=== PATIENT | female | born 1955 | race Caucasian/White ===

== ENCOUNTER 2025-09-28 14:01 | Outpatient (AMB) | payer MEDICARE, SELFPAY ==
[2025-09-28 14:03] VITALS: BP 144/62; PULSE 63; O2SAT 99; BMI 15.9
--- NOTE | 2025-09-28 14:03 | HO.NEPHOV ---
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: No Accompanied by: Son Allergies adalimumab Allergy (Unknown, Verified 09/28/25 14:06) Rash alendronate sodium Allergy (Unknown, Verified 09/28/25 14:06) Unknown azathioprine Allergy (Unknown, Verified 09/28/25 14:06) Unknown cefuroxime Allergy (Unknown, Verified 09/28/25 14:06) Nausea and Vomiting clindamycin Allergy (Unknown, Verified 09/28/25 14:06) Gastrointestinal Upset etanercept Allergy (Unknown, Verified 09/28/25 14:06) Unknown golimumab Allergy (Unknown, Verified 09/28/25 14:06) Unknown ibandronate sodium Allergy (Unknown, Verified 09/28/25 14:06) Unknown levofloxacin Allergy (Unknown, Verified 09/28/25 14:06) GI Intolerance lisinopril Allergy (Unknown, Verified 09/28/25 14:06) Cough methotrexate Allergy (Unknown, Verified 09/28/25 14:06) Unknown risedronate sodium Allergy (Unknown, Verified 09/28/25 14:06) Unknown sulfamethoxazole (From Sulfamethoxazole-Trimethoprim) Allergy (Unknown, Verified 09/28/25 14:06) Hives trimethoprim (From Sulfamethoxazole-Trimethoprim) Allergy (Unknown, Verified 09/28/25 14:06) Hives covid 19 vaccine Bivalent, Moderna Allergy (Unknown, Uncoded 09/26/25 15:19) Hives Medication List - Last Reconciled 09/28/25 by Bradley Rosenberg MD balsalazide 750 mg PO TID cyclosporine 0.05% (Restasis) 1 drp ophthalmic (eye) BID doxycycline monohydrate 100 mg PO BID famotidine 40 mg PO DAILY ferrous sulfate 134 mg PO DAILY gabapentin 600 mg PO TID labetalol 100 mg PO Q12H metformin ER 1,000 mg PO BID mycophenolate mofetil 1,500 mg PO BID nifedipine ER 30 mg PO QAM prednisone 4 mg PO DAILY timolol maleate 0.5% 1 drp ophthalmic (eye) BID valacyclovir 1,000 mg PO DAILY valsartan 80 mg PO DAILY HPI Comments Details: The patient is a 70-year-old female presenting with hypertension management and associated complications. The patient has a long-standing history of essential hypertension, first noted during her teenage years. Despite treatment with labetalol, nifedipine, and valsartan, her blood pressure remains poorly controlled, often reaching 180 mmHg in the mornings before medication. She experiences significant peripheral edema, particularly in the feet and legs, which worsens with nifedipine use. The patient also has a history of diabetes mellitus, managed with metformin, and reports an A1c of 6.5%. Additionally, she has been diagnosed with Siddharth's Granulomatosis, confirmed through blood work and biopsy, and is currently managed with mycophenolate. Neuropathy, affecting her legs and feet, is managed with gabapentin, although she reports significant pain at night. She has also experienced a brain hemorrhage, with a recent CT confirming stability and no further complications. Patient Instructions - Monitor blood pressure regularly and report any significant changes. - Continue taking prescribed medications as directed. - Schedule follow-up appointments with neurology and pain management specialists. - Report any new or worsening symptoms to your healthcare provider. 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 Thin built Neck supple no JVD. Lungs entry equal no rales. Heart S1-S2 heard no gallop or rub. Abdomen soft nontender. Neuro alert awake oriented. No asterixis. Extremities 1 + ankle edema. Results Reviewed Results Reviewed: Labs reviewed Assessment & Plan Assessment & Plan (1) HTN (hypertension): Code(s): I10 - Essential (primary) hypertension Category: Medical Plan 1. Essential Hypertension - Plan to conduct 24-hour blood pressure monitoring to assess fluctuations and adjust medications accordingly. - Consider increasing valsartan dosage - Evaluate the need to discontinue nifedipine due to associated edema. 2. Peripheral Edema - Assess for proteinuria to rule out renal causes of edema. - Consider discontinuing nifedipine if it is contributing to edema. 3. Diabetes Mellitus - Continue management with metformin and monitor A1c levels. 4. Siddharth's Granulomatosis - Continue current management with mycophenolate. Check urine for protein and blood 5. Neuropathy - Continue gabapentin for neuropathic pain management. - Consider referral to hand paint mixer for further evaluation. 6. Brain Hemorrhage - Follow-up with neurology and repeat MRI to monitor for any changes. Orders: Orders Total Protein Urine Random 09/28/25 I10 - Essential (primary) hypertension UA and rflx microscopic 09/28/25 I10 - Essential (primary) hypertension Comprehensive Met. Panel 09/28/25 I10 - Essential (primary) hypertension Myeloperoxidase Antibody 09/28/25 I10 - Essential (primary) hypertension Creatinine Urine 09/28/25 I10 - Essential (primary) hypertension Complete Blood Count Auto Diff 09/28/25 I10 - Essential (primary) hypertension Neutrophil Cytoplasma Ab 09/28/25 I10 - Essential (primary) hypertension Proteinase 3 PR3 Antibodies 09/28/25 I10 - Essential (primary) hypertension AMB 24 HR B/P Monitor PLACEMENT 09/28/25 I10 - Essential (primary) hypertension Coding Level of Care Code New Pt Level 4 (69498) Diagnoses HTN (hypertension) I10
--- OUTSIDE RECORDS SUMMARY | 2025-09-28 17:59 | XMS_ITS | Encounter Summary ---
Author Organization [facility] Address [address] [place] [address] Care Team Providers Care Cdc Associate Name Role Phone Elvia Astudillo Primary Care Provider + Encounter Details Date Type Department Care Team (Late Contact Info) Description 09/04/2025 Results Follow-Up Internal Medicine [facility] 175 [facility] [address] [place] [address] Elvia Astudillo PA [address] [place] [address] Social History Tobacco Use Types Packs/Day Years Used Date Smoking Tobacco: Former Cigarettes 1 36 0 01/08/1971 - 01/08/2007 Smokeless Tobacco: Never Alcohol Use Standard Drinks/Week Comments No 0 (1 standard drink = 0.6 oz pur e alcohol) Comments Unknown Sex and Gender Information Value Date Recorded Sex Assigned at Not on file Legal Sex Female 11:01 AM EST Gender Identity Not on file Sexual Orientation Not on file Occupation Industry Job Start Date Job End Date Disabled Not on file Not on file Not on file documented as of this encounter Plan of Treatment Upcoming Encounters Date Type Department Care Team (Late Contact Info) Description 10/19/2025 9:45 AM EST Office Visit Internal Medicine [facility] 175 [facility] [address] [place] [phone] Elvia Astudillo PA [address] [place] [address] 12/09/2025 9:40 AM EST Office Visit Gastroenterology - [address] [facility] 299 [facility] [address] [place] [phone] Aleisha Hutchins MD [address] [place] [phone] 03/10/2026 9:30 AM EDT Office Visit Internal Medicine - [place] [address] [phone] Elvia Astudillo PA [address] [place] [address] documented as of this encounter Visit Diagnoses Not on filedocumented in this encounter Care Teams Cdc Associate Relationship Specialty Start Date End Date Elvia Astudillo PA [address] [address] PCP - General Internal Medicine 06/26/20 documented as of this encounter
--- OUTSIDE RECORDS SUMMARY | 2025-09-28 17:59 | XMS_ITS | Encounter Summary ---
Author Organization [facility] Address [address] [place] [address] Care Team Providers Care Oyster Bed Worker Name Role Phone Elvia Astudillo Primary Care Provider + Reason for Visit * Reason Onset Date Comments Request For Order(s) 09/27/2025 [facility] Order # [id number] Encounter Details Date Type Department Care Team (Late st Contact Info) Description 09/27/2025 Telephone Internal Medicine - [place] 175 [facility] [address] [place] [address] Carine Gomez MA Social History Tobacco Use Types Packs/Day Years [...] on file documented as of this encounter Progress Notes * Carine Gomez MA - 09/28/2025 10:58 AM EDT Scanned into chart and faxed to [facility] [phone] * Carine Gomez MA - 09/27/2025 9:09 AM EDT [facility] Order # [id number] Please sign & documented in this encounter Plan of Treatment Upcoming Encounters Date Type Department Care Team (Late st Contact Info) Description 10/19/2025 9:45 AM EST Office Visit Internal Medicine - [place] 175 [facility] 200 [place] [phone] Elvia Astudillo PA [address] [place] [address] 12/09/2025 9:40 AM EST Office Visit Gastroenterology - 299 [facility] 299 [facility] [address] [place] [phone] Aleisha Hutchins MD [address] [place] [address] 03/10/2026 9:30 AM EDT Office Visit Internal Medicine [facility] 175 [facility] 200 [place] [phone] Elvia Astudillo PA [address] [place] [address] documented as of this encounter Visit Diagnoses Not on filedocumented in this encounter Care Teams Oyster Bed Worker Relationship Specialty Start Date End Date Elvia Astudillo PA 175 [facility] 200 [place] [address] PCP - General Internal Medicine 06/26/20 documented as of this encounter
--- OUTSIDE RECORDS SUMMARY | 2025-09-28 17:59 | XMS_ITS | Encounter Summary ---
Author Organization [facility] Address [address] [place] [address] Care Team Providers Care Electrical Linesworker Name Role Phone Elvia Astudillo Primary Care Provider + Encounter Details Date Type Department Care Team ([facility] Contact Info) Description 09/27/2025 Telephone Internal Medicine - [place] 175 [facility] 200 [place] [phone] Carine Gomez MA Social History Tobacco Use [...] 9:45 AM EST Office Visit Internal Medicine [facility] 175 [facility] [address] [place] [phone] Elvia Astudillo PA [address] [place] [phone] 12/09/2025 9:40 AM EST Office Visit Gastroenterology - 299 [facility] 299 [facility] [address] [place] [phone] Aleisha Hutchins MD [address] [place] [phone] 03/10/2026 9:30 AM EDT Office Visit Internal Medicine - [place] [address] [phone] Elvia Astudillo PA [address] [place] [phone] documented as of this encounter Visit Diagnoses Not on filedocumented in this encounter Care Teams Electrical Linesworker Relationship Specialty Start Date End Date Elvia Astudillo PA [address] [address] PCP - General Internal Medicine 06/26/20 documented as of this encounter
--- OUTSIDE RECORDS SUMMARY | 2025-09-28 17:59 | XMS_ITS | Clinical Summary ---
Author Organization [facility] Address [address] [place] [address] Phone Care Team Providers Care Case Management Assistant Name Role Phone Elvia Astudillo Primary Care Provider + Allergies Active Allergy Reactions Criticality Noted Date Comments Adalimumab Rash 03/18/2025 Alendronate Other 03/18/2025 Azathioprine GI intolerance 03/18/2025 Cefdinir Diarrhea 03/18/2025 Cefuroxime GI intolerance,Nause a And Vomiting,Nausea Only 07/03/2018 cefuroxime axetil Clindamycin GI intolerance 03/18/2025 Covid-19 Vaccine, Bivalent, Mrna (Moderna) Hives 12/06/2021 Phizer - hives after 2nd shot Etanercept Other 03/18/2025 Enbrel Golimumab GI intolerance 03/18/2025 Ibandronate Other 03/18/2025 Levofloxacin GI intolerance 03/18/2025 Lisinopril Cough 05/24/2019 Methotrexate Other 03/18/2025 Risedronate GI intolerance 03/18/2025 Sulfamethoxazole-Trimet hoprim Hives,Rash 07/03/2018 Bactrim Medications doxycycline (ADOXA) 100 mg tablet Take 1 tablet (100 mg total) by mouth 2 (two) times a day. 12/29/19 14 Active mycophenolate (CELLCEPT) 500 mg tablet Take 3 tablets (1,500 mg total) by mouth 2 (two) times a day. Active valACYclovir (VALTREX) 1 gram tablet Take 1 tablet (1,000 mg total) by mouth 1 (one) time each day. 12/10/19 23 Active timolol (TIMOPTIC) 0.5 % ophthalmic solution 1 drop. Active polyethylene glycol (PEG) 17 gram/dose oral powder Take 17 g by mouth. 12/29/19 14 Active cycloSPORINE (RESTASIS) 0.05 % ophthalmic emulsion 1 drop 2 (two) times a day. Active balsalazide (COLAZAL) 750 mg capsule Take 1 capsule (750 mg total) by mouth 3 (three) times a day. 270 capsule 1 07/21/20 25 Active famotidine (PEPCID) 40 mg tablet Take 1 tablet (40 mg total) by mouth 1 (one) time each day. 180 tablet 3 07/21/20 25 Active metFORMIN XR (GLUCOPHAGE-XR) 500 mg 24 hr tabletIndication s:Type 2 diabetes mellitus with diabetic microalbuminuria , without long-term current use of insulin ([facility] V24, [facility] V28) Take 2 tablets (1,000 mg total) by mouth 2 (two) times a day with meals. Do not crush, chew, or split. 360 tablet 1 09/02/20 25 Active NIFEdipine XL (PROCARDIA XL) 30 mg 24 hr tabletIndication s:Primary hypertension Take 1 tablet (30 mg total) by mouth 1 (one) time each day before breakfast. 90 tablet 3 09/02/20 25 Active labetaloL (NORMODYNE) 100 mg tablet Take 1 tablet (100 mg total) by mouth 2 (two) times a day. 180 each 1 09/15/20 25 03/14/ 026 Active melatonin 3 mg capsule Take 3 mg by mouth at bedtime. 90 capsule 3 09/15/20 25 Active valsartan (DIOVAN) 80 mg tablet Take 1 tablet (80 mg total) by mouth 1 (one) time each day. 90 each 1 09/15/20 25 Active acetaminophen-co deine (TYLENOL #3) 300-30 mg per tabletIndication s:Rheumatoid arthritis, involving unspecified site, unspecified whether rheumatoid factor present ([facility] V24, [facility] V28) Take 1 tablet by mouth at bedtime as needed for severe pain. Max Daily Amount: 1 tablet 7 tablet 09/22/20 25 Active gabapentin (NEURONTIN) 600 mg tablet Take 1 tablet (600 mg total) by mouth 4 (four) times a day. 360 tablet 1 09/27/20 Active predniSONE (DELTASONE) 1 mg tablet Take 4 tablets (4 mg total) by mouth. 12/10/19 025 Discontinued metFORMIN XR (GLUCOPHAGE-XR) 500 mg 24 hr tabletIndication s:Type 2 diabetes mellitus with diabetic microalbuminuria , without long-term current use of insulin (CMS/HCC V24, CMS/HCC V28) Take 2 tablets (1,000 mg total) by mouth 2 (two) times a day with meals. Do not crush, chew, or split. 360 tablet 1 01/28/20 025 Discontinued(Re order) NIFEdipine XL (Procardia XL) 30 mg 24 hr tabletIndication s:Primary hypertension Take 1 tablet (30 mg total) by mouth 2 (two) times a day. Do not crush, chew, or split. 180 each 1 02/05/20 025 Discontinued(Re order) ketoconazole (NIZORAL) 2 % shampooIndicatio ns:Dandruff SHAMPOO DAILY LEAVE ON FOR 5-10 MINUTES, THEN RINSE 120 mL 02/11/20 025 Discontinued MINOXIDIL ORAL Take by mouth. 025 Discontinued(Th erapy completed) gabapentin (NEURONTIN) 600 mg tablet TAKE 1 TABLET 3 TIMES A DAY 270 tablet 1 05/01/20 025 Discontinued(Re order) linaCLOtide (LINZESS) 145 mcg capsule Take 1 capsule (145 mcg total) by mouth 1 (one) time each day before breakfast. 90 capsule 1 07/21/20 025 Discontinued NIFEdipine XL (Procardia XL) 30 mg 24 hr tabletIndication s:Primary hypertension Take 1 tablet (30 mg total) by mouth 1 (one) time each day before breakfast. Do not crush, chew, or split. 09/02/20 25 025 Discontinued(Re order) NIFEdipine XL (Procardia XL) 30 mg 24 hr tabletIndication s:Primary hypertension Take 1 tablet (30 mg total) by mouth 1 (one) time each day before breakfast. Do not crush, chew, or split. 90 tablet 3 09/02/20 25 025 Discontinued gabapentin (NEURONTIN) 600 mg tablet Take 1 tablet (600 mg total) by mouth 3 (three) times a day. 270 tablet 1 09/02/20 025 Discontinued(Re order) labetaloL (NORMODYNE) 100 mg tablet Take 1 tablet (100 mg total) by mouth 2 (two) times a day. 09/12/20 025 Discontinued(Re order) valsartan (DIOVAN) 40 mg tablet Take 1 tablet (40 mg total) by mouth 1 (one) time each day. 09/12/20 025 Discontinued valsartan (DIOVAN) 80 mg tablet Take 1 tablet (80 mg total) by mouth 1 (one) time each day. 30 each 1 09/14/20 025 Discontinued(Re order) labetaloL (NORMODYNE) 100 mg tablet Take 1 tablet (100 mg total) by mouth 2 (two) times a day. 60 each 1 09/14/20 025 Discontinued(Du plicate order) melatonin 3 mg capsule Take 3 mg by mouth at bedtime. 90 capsule 3 09/14/20 025 Discontinued(Re order) Active Problems Problem Noted Date Diagnosed Date Anxiety Overview (10/15/2024): DX:Anxiety Chronic sinusitis Overview (10/15/2024): DX:Chronic sinusitis Crohn's disease ([facility] V24, [facility] V28) Overview (10/15/2024): DX:Crohn's disease ([facility]) DM type 2 (diabetes mellitus , type 2) ([facility] V24, 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 V24, 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 V24, [facility] V28) Overview (10/15/2024): DX:Wegeners granulomatosis Encounters Date Type Department Care Team Description 09/27/2025 Telephone Internal Medicine [facility] [address] [address] Carine Gomez MA 09/27/2025 Telephone Internal Medicine [facility] [address] [address] Carine Gomez MA 09/27/2025 Telephone Internal Medicine [facility] [address] [address] Carine Gomez MA 09/27/2025 Telephone Internal Medicine [facility] [address] [address] Carine Gomez MA 09/27/2025 Telephone Internal Medicine [facility] [address] [address] Carine Gomez MA 09/27/2025 Telephone Internal Medicine [address] [address] Carine Gomez MA 09/22/2025 10:30 AM EDT Office Visit Internal [address] [address] Elvia Astudillo PA Primary hypertension (Primary Dx); Rheumatoid arthritis, involving unspecified site, unspecified whether rheumatoid factor present (CMS/HCC V24, CMS/HCC V28) 09/19/2025 Telephone Internal Medicine [address] [address] Elvia Astudillo PA 09/16/2025 Telephone Internal Medicine [address] [address] Elvia Astudillo PA 09/14/2025 10:30 AM EDT Office Visit Internal [address] [address] Ben Wheatley MD Hospital discharge follow-up (Primary Dx); Cerebral brain hemorrhage (CMS/HCC V24, CMS/[facility] V28); Primary hypertension 09/14/2025 Telephone Internal [address] [address] Elvia Astudillo PA 09/13/2025 Telephone Internal Medicine [address] [address] Elvia Astudillo PA 09/04/2025 Results Follow-Up Internal [address] [address] Elvia Astudillo PA 09/02/2025 9:30 AM EDT Office Visit [address] [address] Elvia Astudillo PA Type 2 diabetes mellitus with diabetic microalbuminuria, without long-term current use of insulin ([facility] V24, [facility] V28) (Primary Dx); Primary hypertension; Pure hypercholesterolemia ; Rheumatoid arthritis, involving unspecified site, unspecified whether rheumatoid factor present ([facility] V24, [facility] V28) 09/02/2025 Telephone Internal Medicine - [place] 175 [facility] [address] [place] [address] Elvia Astudillo PA 07/20/2025 Telephone Gastroenterology - [address] [facility] [address] [place] [address] Aleisha Hutchins MD from Last 3 Months Immunizations Immunization Administration Dates Next Due Pneumococcal conjugate 13 va lent (Prevnar 13, PCV13) 2mo and older 07/20/2020 Pneumococcal polysaccharide 23 valent (Pneumovax 23) 2yo and older 06/28/2021,07/25/2008 Tdap Tetanus diptheria acell ular pertussis (Boostrix; Adacel) 7yo and older 12/09/2023,04/14/2014 Surgical History Surgery Date Site/Laterality Comments EYE SURGERY Left PROCEDURE: HISTORICAL EYE SURGERY; COMMENT: x 2 - eye patch and cataract - 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 Mendenhall COLONOSCOPY W/ BIOPSIES 04/05/2003 Dr. Sinha - no active colitis COLONOSCOPY W/ BIOPSIES 07/05/2008 no active colitis Medical History Medical History Date Comments Anxiety 07/15/2017 DX:Anxiety Chronic sinusitis 03/06/2018 DX:Chronic sin usitis Hyperlipidemia 07/03/2018 DX:Hyperlipidemi a; COMMENT: declines medication Insomnia 07/15/2017 DX:Insomnia Rheumatoid arthritis ([facility]/ C V24, [facility] V28) 07/03/2018 DX:Rheumatoid arthritis ([facility] ) Wegeners granulomatosis 07/03/2018 DX:Wegen ers granulomatosis Crohn's disease ([facility] V24 , [facility] V28) 07/03/2018 DX:Crohn's disease ([facility]) GERD (gastroesophageal reflux disease) 11/07/2017 DX:GERD (gastroesophageal reflux disease) Raynaud's disease DX:Raynaud's d isease 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 DM type 2 (diabetes mellitus , type 2) ([facility] V24, [facility] V28) 07/03/2018 DX:DM type 2 (diabetes papa itus, type 2) ([facility]) HTN (hypertension) DX:HTN (hyper tension) Microalbuminuria DX:Microalbumin uria Chronic constipation Androgenetic alopecia Family History Medical History Relation Name Comments Dementia Father Heart attack Father Stroke Mother Other: non hodgkins lymphoma Son Relation Name Status Comments Father (Age 80) Mother (Age 80) Son Alive Social History Tobacco Use Types Packs/Day Years Used Date Smoking Tobacco: Former Cigarettes 1 36 0 01/08/1971 - 01/08/2007 Smokeless Tobacco: Never Tobacco Cessation:Counseling Given: Not Answered Alcohol Use Standard Drinks/Week Comments No 0 [...] file Not on file Not on file Obstetrics History Last Filed Vital Signs Vital Sign Reading Time Taken Comments Blood Pressure 142/82 09/22/2025 10:54 AM EDT Pulse 54 09/22/2025 10:28 AM EDT Temperature 36.4 C (97.5 F) 09/22/2025 10:28 AM EDT Respiratory Rate - - Oxygen Saturation 98% 09/22/2025 10:28 AM EDT Inhaled Oxygen Concentration - - Weight 39.6 kg (87 lb 6.4 oz) 09/22/2025 10:28 A M EDT Height 158.1 cm (5' 2.25 ) 09/22/2025 10:28 AM E DT Body Mass Index 15.86 09/22/2025 10:28 AM EDT Plan of Treatment Upcoming Encounters Date Type Department Care Team (Late st Contact Info) Description 10/19/2025 9:45 AM EST Office Visit Internal Medicine - [place] 175 [facility] [address] [place] [phone] Elvia Astudillo PA [address] [place] [address] 12/09/2025 9:40 AM EST Office Visit Gastroenterology - [address] [facility] [address] [place] [address] Aleisha Hutchins MD [address] [place] [address] 03/10/2026 9:30 AM EDT Office Visit Internal Medicine - [place] 175 [facility] [address] [place] [phone] Elvia Astudillo PA [address] [place] [address] Health Maintenance Due Date Last Done Comments Breast Cancer Screening 1955 Diabetes: Annual Foot Exam 02/08/1966 Diabetes: Annual Retina Eye Exam 02/08/1966 Zoster Vaccines (1 of 2) 02/08/1975 RSV Immunization Adult Patients (1 - Risk 50-74 years 1-dose series) 02/08/2006 Colorectal Cancer Screening: Colonoscopy 04/05/2013 04/05/2003 COVID-19 Vaccine (3 - Pfizer risk series) 04/02/2021 03/05/2021, 02/12/2021 Falls Risk Assessment 11/09/2022 Hepatitis C Screening 11/09/2022 Medicare Annual Wellness Visit 11/09/2022 Osteoporosis Screening (Bone Density Screening) 11/09/2022 Social Influencers of Health Screening 11/09/2022 Depression Screening 12/01/2024 Diabetes: Annual Urine Albumin-Creatinine Ratio (uACR) 06/08/2025 06/08/2024 Cholesterol Screening (Lipid Panel) 07/20/2025 07/20/2020 Influenza Vaccine (#1) 2025 Diabetes: Blood Sugar Contro l Test (HGBA1C) 03/03/2026 09/02/2025, 12/10/2024, 06/08/2024 Diabetes: Annual GFR (Glomerular Filtration Rate) 09/02/2026 09/02/2025, 12/10/2024, 06/08/2024 Hypertension/CHF/CAD Annual BMP Blood Test 09/02/2026 09/02/2025, 12/10/2024, 06/08/2024 DTaP,Tdap,and Td Vaccines (3 - Td or Tdap) 12/09/2033 12/09/2023, 04/14/2014 Pneumococcal Vaccine: 50+ Years Completed 06/28/2021, 07/20/2020, 07/25/2008 HIB Vaccines Aged Out No longer eligi ble based on patient's age to complete this topic HPV Vaccines Aged Out No longer eligi ble based on patient's age to complete this topic Hepatitis A Vaccines Aged Out No long er eligible based on patient's age to complete this topic Hepatitis B Vaccines Aged Out No long er eligible based on patient's age to complete this topic IPV Vaccines Aged Out No longer eligi ble based on patient's age to complete this topic MMR Vaccines Aged Out No longer eligi ble based on patient's age to complete this topic Meningococcal ACWY Vaccine Aged Out N o longer eligible based on patient's age to complete this topic Meningococcal B Vaccine Aged Out No l onger eligible based on patient's age to complete this topic RSV Immunization Patients Under 20 months Aged Out No longer eligible b ased on patient's age to complete this topic Varicella Vaccines Aged Out No longer eligible based on patient's age to complete this topic Procedures Procedure Name Priority Date/Time Associated Diagnosis Comments COMPREHENSIVE METABOLIC PANEL Routine 09/02/2025 10:07 AM EDT Type 2 diabetes mellitus with diabetic microalbuminuria, without long-term current use of insulin ([facility] V24, [facility] V28) Primary hypertension HEMOGLOBIN A1C Routine 09/02/2025 10:07 AM EDT Type 2 diabetes mellitus with diabetic microalbuminuria, without long-term current use of insulin ([facility] V24, [facility] V28) HM URINE ALBUMIN CREATININE RATIO Routine 06/08/2024 LIPID PANEL Routine 07/20/2020 EXTERNAL COLONOSCOPY REPORT Routine 04/05/2003 8:55 AM EDT from Last 3 Months or Most Recently Relevant to Health Maintenance Results * Hemoglobin A1c (09/02/2025 10:07 AM EDT) Hemoglobin A1C 6.1 <6.5 % LAB CHEMISTRY METHOD 09/02/2025 8:24 PM EDT [facility] Mean Bld Glu Estim. 128 mg/dL LAB CHEMISTRY METHOD 09/02/2025 8:24 PM [facility] Blood Venous blood specimen / Unknown Venipuncture / Unknown 09/02/2025 10:07 AM EDT 09/02/2025 10:07 AM EDT us Elvia ANDERSON LAB BLOOD ORDERABLES Fin al Result [facility] [address] [place] [address], * (ABNORMAL) Comprehensive metabolic panel (09/02/2025 10:07 AM EDT) Sodium 133 133 - 145 mmol/L LAB CHEMISTRY METHOD 09/02/2025 4:22 PM [facility] Potassium 4.6 3.5 - 5.5 mmol/L LAB CHEMISTRY METHOD 09/02/2025 4:22 PM [facility] Chloride 93(L) 96 - 110 mmol/L LAB CHEMISTRY METHOD 09/02/2025 4:22 PM [facility] CO2 31 21 - 32 mmol/L LAB CHEMISTRY METHOD 09/02/2025 4:22 PM [facility] Anion Gap 9 3 - 11 LAB CHEMISTRY METHOD 09/02/2025 4:22 PM [facility] Glucose 125(H) 70 - 100 mg/dL LAB CHEMISTRY METHOD 09/02/2025 4:22 PM [facility] BUN 10 5 - 25 mg/dL LAB CHEMISTRY METHOD 09/02/2025 4:22 PM [facility] Creatinine 0.55 0.50 - 1.10 mg/dL LAB CHEMISTRY METHOD 09/02/2025 4:22 PM [facility] eGFR 99 >=60 mL/min/1. 73m2 LAB CHEMISTRY METHOD 09/02/2025 4:22 PM EDT [facility] Comment:Calculation based on the Chronic Kidney Disease Epidemiology Collaboration (CKD-EPI) equation refit without adjustment for race. BUN/Creatinine Ratio 18.2 LAB CHEMISTRY METHOD 09/02/2025 4:22 PM [facility] Calcium 9.8 8.5 - 10.5 mg/dL LAB CHEMISTRY METHOD 09/02/2025 4:22 PM [facility] AST (SGOT) 14 10 - 42 unit/L LAB CHEMISTRY METHOD 09/02/2025 4:22 PM [facility] ALT (SGPT) 22 10 - 60 unit/L LAB CHEMISTRY METHOD 09/02/2025 4:22 PM [facility] Alkaline Phosphatase 42 42 - 121 unit/L LAB CHEMISTRY METHOD 09/02/2025 4:22 PM [facility] Total Protein 6.3 6.0 - 8.0 g/dL LAB CHEMISTRY METHOD 09/02/2025 4:22 PM [facility] Albumin 3.7 3.2 - 5.0 g/dL LAB CHEMISTRY METHOD 09/02/2025 4:22 PM [facility] Total Bilirubin 0.3 0.0 - 1.4 mg/dL LAB CHEMISTRY METHOD 09/02/2025 4:22 PM [facility] Blood Venous blood specimen / Unknown Venipuncture / Unknown 09/02/2025 10:07 AM EDT 09/02/2025 10:07 AM EDT us Elvia ANDERSON LAB BLOOD ORDERABLES Fin al Result [facility] [address] [place] [address], * HM Urine Albumin Creatinine Ratio (06/08/2024) Urine Albumin Creatinine Ratio Abstracted us Historical Provider HEALTH MAINTENANCE Final Result * (ABNORMAL) Lipid panel (07/20/2020) LDL/HDL Ratio 2 0 - 4 Triglycerides 89 0 - 150 mg/dL Cholesterol 276(A) 0 - 200 mg/dL HDL 125 >=40 mg/dL LDL Cholesterol 134(A) 0 - 100 mg/dL Blood Venous blood specimen / Unknown Historical Provider LAB BLOOD ORDERABLES Julisa l Result * External Colonoscopy Report (04/05/2003 8:55 AM EDT) Anatomical Region Laterality Modality Endoscopy Historical Provider GI~PROCEDURE ORDERABLES F inal Result from Last 3 Months or Most Recently Relevant to Health Maintenance Insurance MEDICARE [facility] Care Teams Case Management Assistant Relationship Specialty Start Date End Date Elvia Astudillo PA [address] [address] PCP - General Internal Medicine 06/26/20
--- OUTSIDE RECORDS SUMMARY | 2025-09-28 17:59 | XMS_ITS | Encounter Summary ---
Author Organization [facility] Address [address] [place] [address] Care Team Providers Care Air Plant Engineer Name Role Phone Elvia Astudillo Primary Care Provider + Reason for Visit * Reason Onset Date Comments Request For Order(s) 09/27/2025 [facility] Order # [id number] Encounter Details Date Type Department Care Team (Late st Contact Info) Description 09/27/2025 Telephone Internal Medicine - [place] 175 [facility] [address] [place] [address] Carine Gomez MA Social History [...] Notes * Carine Gomez MA - 09/28/2025 10:54 AM EDT Scanned into chart and faxed to [facility] [phone] * Carine Gomez MA - 09/27/2025 8:22 AM EDT [facility] Order # [id number] Please sign & documented in this encounter Plan of Treatment Upcoming Encounters Date Type Department Care Team (Late st Contact Info) Description 10/19/2025 9:45 AM EST Office Visit Internal Medicine - [place] 175 [facility] [address] [place] [phone] Elvia Astudillo PA [address] [place] [address] 12/09/2025 9:40 AM EST Office Visit Gastroenterology - [address] [facility] 299 [facility] [address] [place] [phone] Aleisha Hutchins MD [address] [place] [address] 03/10/2026 9:30 AM EDT Office Visit Internal Medicine [facility] 175 [facility] [address] [place] [phone] Elvia Astudillo PA [address] [place] [address] documented as of this encounter Visit Diagnoses Not on filedocumented in this encounter Care Teams Air Plant Engineer Relationship Specialty Start Date End Date Elvia Astudillo PA 175 [facility] [address] [place] [address] PCP - General Internal Medicine 06/26/20 documented as of this encounter
--- OUTSIDE RECORDS SUMMARY | 2025-09-28 17:59 | XMS_ITS | Clinical Summary ---
Author Organization [facility] Address [address] [place] [address] [place], [place] [id number] Phone Care Team Providers Care Cutlery Grinder Name Role Phone Ismael Hutchison MD Primary Care Provider [phone] Social History Tobacco Use Types Packs/Day Years Used Date Smoking Tobacco: Never Assessed Comments Unknown Sex and Gender Information Value Date Recorded Sex Assigned at Not on file Legal Sex Female 5:03 PM EST Gender Identity Not on file Sexual Orientation Not on file Plan of Treatment Not on file Medical Devices Not on file [facility] H[facility] Care Teams Cutlery Grinder Relationship Specialty Start Date End Date Ismael Hutchison MD PCP - General 08/08/14 Additional Source Comments The information contained in this document represents components of the legal health record. It is not the complete legal health record.[facility]
--- OUTSIDE RECORDS SUMMARY | 2025-09-28 17:59 | XMS_ITS ---
Author Name [facility] Organization Unknown Care Team Organization Name Specialty Phone Email Start Date End Da te [facility] Elvia Astudillo Primary Care 10/08/2022 07/19/2024
--- OUTSIDE RECORDS SUMMARY | 2025-09-28 17:59 | XMS_ITS | Encounter Summary ---
Author Organization [facility] Address [address] [place] [address] Care Team Providers Care Attorney Recruiter Name Role Phone Elvia Astudillo Primary Care Provider + Reason for Visit * Reason Onset Date Comments Request For Order(s) 09/27/2025 [facility] Cert 09/13/25-11/11/25 Plan Of Care Encounter Details Date Type Department Care Team (Late st Contact Info) Description 09/27/2025 Telephone Internal Medicine - [place] 175 [facility] [address] [place] [phone] Carine Gomez MA Social History Tobacco Use [...] Notes * Carine Gomez MA - 09/28/2025 11:33 AM EDT Scanned into chart and faxed to [facility] [phone] * Carine Gomez MA - 09/27/2025 10:39 AM EDT [facility] Cert 09/13/25-11/11/25 Plan Of Care Please sign & documented in this encounter Plan of Treatment Upcoming Encounters Date Type Department Care Team (Late st Contact Info) Description 10/19/2025 9:45 AM EST Office Visit Internal Medicine - [place] 175 [facility] 200 [place] [phone] Elvia Astudillo PA 230 [place] [address] 12/09/2025 9:40 AM EST Office Visit Gastroenterology - [address] [facility] 299 [facility] [address] [place] [address] Aleisha Hutchins MD 230 [place] [address] 03/10/2026 9:30 AM EDT Office Visit Internal Medicine - [place] 175 [facility] 200 [place] [phone] Elvia Astudillo PA 230 [place] [address] documented as of this encounter Visit Diagnoses Not on filedocumented in this encounter Care Teams Attorney Recruiter Relationship Specialty Start Date End Date Elvia Astudillo PA 175 [facility] 200 [place] [address] PCP - General Internal Medicine 06/26/20 documented as of this encounter
--- OUTSIDE RECORDS SUMMARY | 2025-09-28 17:59 | XMS_ITS | Encounter Summary ---
Author Organization [facility] Address [address] [place] [address] Care Team Providers Care Animal Assisted Therapist Name Role Phone Elvia Astudillo Primary Care Provider + Reason for Visit * Reason Onset Date Comments Request For Order(s) 09/27/2025 [facility] Order # [id number] Encounter Details Date Type Department Care Team (Late st Contact Info) Description 09/27/2025 Telephone Internal Medicine - [place] 175 [facility] [address] [place] [address] Carine Gomez MA Social History [...] Notes * Carine Gomez MA - 09/28/2025 10:56 AM EDT Scanned into chart and faxed to [facility] [phone] * Carine Gomez MA - 09/27/2025 8:43 AM EDT [facility] Order # [id number] Please sign & documented in this encounter Plan of Treatment Upcoming Encounters Date Type Department Care Team (Late st Contact Info) Description 10/19/2025 9:45 AM EST Office Visit Internal Medicine - [place] 175 [facility] 200 [place] [address] Elvia Astudillo PA 230 [place] [address] 12/09/2025 9:40 AM EST Office Visit Gastroenterology - 299 [facility] 299 [facility] 419 [place] [phone] Aleisha Hutchins MD 230 [place] [address] 03/10/2026 9:30 AM EDT Office Visit Internal Medicine [facility] 175 [facility] 200 [place] [address] Elvia Astudillo PA 230 [place] [address] documented as of this encounter Visit Diagnoses Not on filedocumented in this encounter Care Teams Animal Assisted Therapist Relationship Specialty Start Date End Date Elvia Astudillo PA 175 [facility] 200 [place] [address] PCP - General Internal Medicine 06/26/20 documented as of this encounter
--- OUTSIDE RECORDS SUMMARY | 2025-09-28 17:59 | XMS_ITS | Encounter Summary ---
Author Organization [facility] Address [address] [place] [address] Care Team Providers Care Summons Server Name Role Phone Elvia Astudillo Primary Care Provider + Reason for Visit * Reason Onset Date Comments Request For Order(s) 09/27/2025 [facility] Order # [id number] Encounter Details Date Type Department Care Team (Late st Contact Info) Description 09/27/2025 Telephone Internal Medicine - [place] 175 [facility] [address] [place] [address] Carine Gomez MA Social History [...] Notes * Carine Gomez MA - 09/28/2025 10:59 AM EDT Scanned into chart and faxed to [facility] [phone] * Carine Gomez MA - 09/27/2025 9:13 AM EDT [facility] Order # [id number] Please sign & documented in this encounter Plan of Treatment Upcoming Encounters Date Type Department Care Team (Late st Contact Info) Description 10/19/2025 9:45 AM EST Office Visit Internal Medicine - [place] 175 [facility] 200 [place] [phone] Elvia Astudillo PA 230 [place] [address] 12/09/2025 9:40 AM EST Office Visit Gastroenterology - 299 [place] 299 [facility] 419 [place] [address] Aleisha Hutchins MD 230 [place] [address] 03/10/2026 9:30 AM EDT Office Visit Internal Medicine [facility] 175 [facility] 200 [place] [phone] Elvia Astudillo PA 230 [place] [address] documented as of this encounter Visit Diagnoses Not on filedocumented in this encounter Care Teams Summons Server Relationship Specialty Start Date End Date Elvia Astudillo PA 175 [facility] 200 [place] [address] PCP - General Internal Medicine 06/26/20 documented as of this encounter
--- OUTSIDE RECORDS SUMMARY | 2025-09-28 17:59 | XMS_ITS | Encounter Summary ---
Author Organization [facility] Address [address] [place] [address] Care Team Providers Care Sap Enterprise Portal Consultant Name Role Phone Elvia Astudillo Primary Care Provider + Encounter Details Date Type Department Care Team ([facility] st Contact Info) Description 09/16/2025 Telephone Internal Medicine - [place] 175 [facility] [address] [place] [address] Elvia Astudillo PA [address] [place] [address] Social History Tobacco Use Types Packs/Day Years [...] as of this encounter Progress Notes * MONICA Lopez - 09/17/2025 11:19 AM EDT Noted. Thank you. * Bree Dean - 09/16/2025 1:30 PM EDT Pt son phone re: appt initial kidney appt sched 11-10-2025 requested sooner if possible Did contact office and informed him of new appt -[facility] - [phone] at 2:OOPM FYI documented in this encounter Plan of Treatment Upcoming Encounters Date Type Department Care Team (Late st Contact Info) Description 10/19/2025 9:45 AM EST Office Visit Internal Medicine [facility] 175 [facility] 200 [place] [phone] Elvia Astudillo PA 230 [place] [address] 12/09/2025 9:40 AM EST Office Visit Gastroenterology - 299 [facility] 299 [facility] 419 [place] [phone] Aleisha Hutchins MD 230 [place] [phone] 03/10/2026 9:30 AM EDT Office Visit Internal Medicine [facility] 175 [facility] 200 [place] [phone] Elvia Astudillo PA 230 [place] [address] documented as of this encounter Visit Diagnoses Not on filedocumented in this encounter Care Teams Sap Enterprise Portal Consultant Relationship Specialty Start Date End Date Elvia Astudillo PA 175 [facility] 200 [place] [address] PCP - General Internal Medicine 06/26/20 documented as of this encounter
== END 2025-09-28 14:50 | disposition home or self-care (01) ==
LOC: HO.HKAS 14:01
PROVIDERS: PCP Internal Medicine; Referring Provider Internal Medicine; Visit Provider Internal Medicine Hypertension Specialist
DX: I10 Essential (primary) hypertension (principal)
CPT/HCPCS: 99204

== ENCOUNTER → 2025-09-28 14:01 | Outpatient (BNVA) | payer MEDICARE, SELFPAY | PROVIDERS: PCP Internal Medicine; Referring Provider Internal Medicine; Visit Provider Internal Medicine Hypertension Specialist | DX: I10 Essential (primary) hypertension (principal) | CPT/HCPCS: 99202 ==

== ENCOUNTER 2025-09-30 10:57 | Outpatient (REF) | payer MEDICARE, SELFPAY ==
--- OUTSIDE RECORDS SUMMARY | 2025-09-30 12:30 | XMS_ITS | Clinical Summary ---
Author Organization [address] [facility] Address 175 [place] [address] Phone Care Team Providers Care Community Chest Officer Name Role Phone Elvia Astudillo Primary Care [...] , without long-term current use of insulin ([facility] V24, [facility] V28) Take 2 tablets (1,000 [...] unspecified site, unspecified whether rheumatoid factor present ([facility] V24, [facility] V28) Take 1 tablet by [...] sinusitis Overview (10/15/2024): DX:Chronic sinusitis Crohn's disease ([facility] V24, [facility] V28) Overview (10/15/2024): DX:Crohn's disease ([facility]) DM type 2 (diabetes mellitus , type 2) ([facility] V24, [facility] V28) Overview (10/15/2024): DX:DM type 2 (diabetes mellitus, type 2) ([facility]) GERD (gastroesophageal reflux disease) Overview [...] disease Overview (10/15/2024): DX:Raynaud's disease Rheumatoid arthritis ([facility] V24, [facility] V28) Overview (10/15/2024): DX:Rheumatoid arthritis (HCC) 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 ([facility] V24, [facility] V28) Overview (10/15/2024): DX:Wegeners granulomatosis Encounters Date Type Department Care Team Description 09/30/2025 Telephone Internal Medicine [facility] [address] [address] Carine Gomez MA 09/27/2025 Telephone Internal Medicine [facility] [address] [address] Carine Gomez MA 09/27/2025 Telephone Internal Medicine [facility] [address] [address] Carine Gomez MA 09/27/2025 Telephone Internal Medicine [facility] [address] [address] Carine Gomez MA 09/27/2025 Telephone Internal Medicine [facility] [address] [address] Carine Gomez MA 09/27/2025 Telephone Internal Medicine [address] [address] Catherine GomezJIA aranda 09/27/2025 Telephone Internal [address] [address] Catherine GomezJIA aranda 09/22/2025 10:30 AM EDT Office Visit Internal [address] [address] Elvia Astudillo PA Primary hypertension (Primary Dx); Rheumatoid arthritis, involving unspecified site, unspecified whether rheumatoid factor present (CMS/HCC V24, [facility] V28) 09/19/2025 Telephone Internal Medicine [address] [address] Elvia Astudillo PA 09/16/2025 Telephone Internal Medicine [address] [address] Elvia Astudillo PA 09/14/2025 10:30 AM EDT Office Visit [address] [address] Ben Wheatley MD Hospital discharge follow-up (Primary Dx); Cerebral brain hemorrhage (CMS/HCC V24, [facility] V28); Primary hypertension 09/14/2025 Telephone Internal Medicine [address] [address] Elvia Astudillo PA 09/13/2025 Telephone Internal Medicine [address] [address] Elvia Astudillo PA 09/04/2025 Results Follow-Up [address] [address] Elvia Astudillo PA 09/02/2025 9:30 AM EDT Office Visit Internal Medicine [address] [address] Elvia Astudillo PA Type 2 diabetes mellitus with diabetic microalbuminuria, without long-term current use of insulin ([facility] V24, [facility] V28) (Primary Dx); Primary hypertension; Pure hypercholesterolemia ; Rheumatoid arthritis, involving unspecified site, unspecified whether rheumatoid factor present ([facility] V24, [facility] V28) 09/02/2025 Telephone Internal Medicine - [place] 175 [facility] 200 [place] [address] Elvia Astudillo PA 07/20/2025 Telephone Gastroenterology - 299 [facility] 299 [facility] 419 [place] [address] Aleisha Hutchins MD from Last [...] patch and cataract - 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 Mendenhall COLONOSCOPY W/ BIOPSIES 04/05/2003 Dr. 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 DX:Wegen ers granulomatosis Crohn's disease ([facility]/HCC V24 , [facility] V28) 07/03/2018 DX:Crohn's disease (HCC) GERD (gastroesophageal reflux disease) 11/07/2017 DX:GERD (gastroesophageal reflux disease) Raynaud's disease DX:Raynaud's d isease 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 DM type 2 (diabetes mellitus , type 2) ([facility] V24, [facility] V28) 07/03/2018 DX:DM type 2 (diabetes papa itus, type 2) ([facility]) HTN (hypertension) DX:HTN (hyper tension) [...] AM EST Office Visit Internal Medicine - [address] [place] [address] Elvia Astudillo PA 230 [place] [address] 12/09/2025 9:40 AM EST Office Visit Gastroenterology - 299 [facility] 299 [facility] 419 [place] [address] Aleisha Hutchins MD 230 [place] [phone] 03/10/2026 9:30 AM EDT Office Visit Internal Medicine - [place] 175 [facility] 200 [place] [address] Elvia Astudillo PA 230 [place] [address] Health Maintenance Due Date Last Done Comments [...] microalbuminuria, without long-term current use of insulin ([facility] V24, [facility] V28) Primary hypertension HEMOGLOBIN A1C Routine 09/02/2025 10:07 AM EDT Type 2 diabetes mellitus with diabetic microalbuminuria, without long-term current use of insulin ([facility] V24, [facility] V28) HM URINE ALBUMIN CREATININE RATIO Routine 06/08/2024 LIPID PANEL Routine 07/20/2020 EXTERNAL COLONOSCOPY REPORT Routine 04/05/2003 8:55 AM EDT from Last 3 Months or Most Recently Relevant to Health Maintenance Results * Hemoglobin A1c (09/02/2025 10:07 AM EDT) Hemoglobin A1C 6.1 <6.5 % LAB CHEMISTRY METHOD 09/02/2025 8:24 PM [facility] Mean Bld Glu Estim. 128 mg/dL LAB CHEMISTRY METHOD 09/02/2025 8:24 PM [facility] Blood Venous blood specimen / Unknown Venipuncture / Unknown 09/02/2025 10:07 AM EDT 09/02/2025 10:07 AM EDT us Elvia ANDERSON LAB BLOOD ORDERABLES Fin al Result [facility] [address] [place] [address], * (ABNORMAL) Comprehensive metabolic panel (09/02/2025 10:07 AM EDT) Sodium 133 133 - 145 mmol/L LAB CHEMISTRY METHOD 09/02/2025 4:22 PM [facility] Potassium 4.6 3.5 - 5.5 mmol/L LAB CHEMISTRY METHOD 09/02/2025 4:22 PM [facility] Chloride 93(L) 96 - 110 mmol/L LAB CHEMISTRY METHOD 09/02/2025 4:22 PM [facility] CO2 31 21 - 32 mmol/L LAB CHEMISTRY METHOD 09/02/2025 4:22 PM [facility] Anion Gap 9 3 - 11 LAB CHEMISTRY METHOD 09/02/2025 4:22 PM [facility] Glucose 125(H) 70 - 100 mg/dL LAB CHEMISTRY METHOD 09/02/2025 4:22 PM [facility] BUN 10 5 - 25 mg/dL LAB CHEMISTRY METHOD 09/02/2025 4:22 PM [facility] Creatinine 0.55 0.50 - 1.10 mg/dL LAB CHEMISTRY METHOD 09/02/2025 4:22 PM [facility] eGFR 99 >=60 mL/min/1. 73m2 LAB CHEMISTRY METHOD 09/02/2025 4:22 PM [facility] Comment:Calculation based on the Chronic Kidney Disease Epidemiology Collaboration (CKD-EPI) equation refit without adjustment for race. BUN/Creatinine Ratio 18.2 LAB CHEMISTRY METHOD 09/02/2025 4:22 PM [facility] Calcium 9.8 8.5 - 10.5 mg/dL LAB CHEMISTRY METHOD 09/02/2025 4:22 PM [facility] AST (SGOT) 14 10 - 42 unit/L LAB CHEMISTRY METHOD 09/02/2025 4:22 PM [facility] ALT (SGPT) 22 10 - 60 unit/L LAB CHEMISTRY METHOD 09/02/2025 4:22 PM [facility] Alkaline Phosphatase 42 42 - 121 unit/L LAB CHEMISTRY METHOD 09/02/2025 4:22 PM [facility] Total Protein 6.3 6.0 - 8.0 g/dL LAB CHEMISTRY METHOD 09/02/2025 4:22 PM [facility] Albumin 3.7 3.2 - 5.0 g/dL LAB CHEMISTRY METHOD 09/02/2025 4:22 PM [facility] Total Bilirubin 0.3 0.0 - 1.4 mg/dL LAB CHEMISTRY METHOD 09/02/2025 4:22 PM [facility] Blood Venous blood specimen / Unknown Venipuncture / Unknown 09/02/2025 10:07 AM EDT 09/02/2025 10:07 AM EDT us Elvia ANDERSON LAB BLOOD ORDERABLES Fin al Result [facility] [address] [place] [address], * HM Urine Albumin Creatinine Ratio (06/08/2024) Urine Albumin Creatinine Ratio Abstracted Historical Provider HEALTH MAINTENANCE Final Result * [...] Recently Relevant to Health Maintenance Insurance MEDICARE [facility] Care Teams Community Chest Officer Relationship Specialty Start Date End Date Elvia Astudillo PA [address] [address] PCP - General Internal Medicine 06/26/20
--- OUTSIDE RECORDS SUMMARY | 2025-09-30 12:30 | XMS_ITS | Encounter Summary ---
Author Organization [facility] Address [address] [place] [address] Care Team Providers Care Banquet Captain Name Role Phone Elvia Astudillo Primary Care Provider + Reason for Visit * Reason Onset Date Comments Request For Order(s) 09/30/2025 [facility] Order # [id number] Encounter Details Date Type Department Care Team ([facility] Contact Info) Description 09/30/2025 Telephone Internal Medicine [address] [place] [address] Carine Gomez MA Social History [...] Progress Notes * Carine Gomez MA - 09/30/2025 7:55 AM EDT [facility] Order # [id number] Please sign & documented in this encounter Plan of Treatment Upcoming Encounters Date Type Department Care Team (Late Contact Info) Description 10/19/2025 9:45 AM EST Office Visit Internal Medicine - [place] 175 [facility] 200 [place] [phone] Elvia Astudillo PA 230 [place] [address] 12/09/2025 9:40 AM EST Office Visit Gastroenterology - 299 [facility] 299 [facility] 419 [place] [phone] Aleisha Hutchins MD 230 [place] [address] 03/10/2026 9:30 AM EDT Office Visit Internal Medicine - [place] 175 [facility] 200 [place] [address] Elvia Astudillo PA 230 [place] [address] documented as of this encounter Visit Diagnoses Not on filedocumented in this encounter Care Teams Banquet Captain Relationship Specialty Start Date End Date Elvia Astudillo PA [address] [facility] 200 [place] [address] PCP - General Internal Medicine 06/26/20 documented as of this encounter
--- OUTSIDE RECORDS SUMMARY | 2025-09-30 12:31 | XMS_ITS | Encounter Summary ---
Author Organization [facility] Address [address] [place] [address] Care Team Providers Care Net Solutions Architect Name Role Phone Elvia Astudillo Primary Care Provider + Reason for Visit * Reason Onset Date Comments Request For Order(s) 09/27/2025 [facility] Order # [id number] Encounter Details Date Type Department Care Team (Late st Contact Info) Description 09/27/2025 Telephone Internal Medicine - [place] 175 [facility] [address] [place] [address] Carine Gomez MA Social History [...] EDT Scanned into chart and faxed to [facility] [phone] * Carine Gomez MA - 09/27/2025 8:[address] [facility] Order # [id number] Please sign & documented in this encounter Plan of Treatment Upcoming Encounters Date Type Department Care Team (Late st Contact Info) Description 10/19/2025 9:45 AM EST Office Visit Internal Medicine - [place] 175 [facility] 200 [place] [phone] Elvia Astudillo PA 230 [place] [address] 12/09/2025 9:40 AM EST Office Visit Gastroenterology - 299 [facility] 299 [facility] 419 [place] [phone] Aleisha Hutchins MD 230 [place] [address] 03/10/2026 9:30 AM EDT Office Visit Internal Medicine [facility] 175 [facility] 200 [place] [phone] Elvia Astudillo PA 230 [place] [address] documented as of this encounter Visit Diagnoses Not on filedocumented in this encounter Care Teams Net Solutions Architect Relationship Specialty Start Date End Date Elvia Astudillo PA 175 [facility] 200 [place] [address] PCP - General Internal Medicine 06/26/20 documented as of this encounter
--- OUTSIDE RECORDS SUMMARY | 2025-09-30 12:31 | XMS_ITS | Encounter Summary ---
Author Organization [facility] Address [address] [place] [address] Care Team Providers Care Clerical Adviser Name Role Phone Elvia Astudillo Primary Care Provider + Encounter Details Date Type Department Care Team ([facility] Contact Info) Description 09/27/2025 Telephone Internal Medicine - [place] 175 [facility] 200 [place] [address] Carine Gomez MA Social History Tobacco Use [...] 9:45 AM EST Office Visit Internal Medicine [facility] 175 [facility] 200 [place] [address] Elvia Astudillo PA [address] [place] [address] 12/09/2025 9:40 AM EST Office Visit Gastroenterology - 299 [facility] 299 [facility] 419 [place] [address] Aleisha Hutchins MD 230 [place] [phone] 03/10/2026 9:30 AM EDT Office Visit Internal Medicine - [place] [address] [phone] Elvia Astudillo PA [address] [place] [address] documented as of this encounter Visit Diagnoses Not on filedocumented in this encounter Care Teams Clerical Adviser Relationship Specialty Start Date End Date Elvia Astudillo PA [address] [address] PCP - General Internal Medicine 06/26/20 documented as of this encounter
--- OUTSIDE RECORDS SUMMARY | 2025-09-30 12:31 | XMS_ITS | Encounter Summary ---
Author Organization [facility] Address [address] [place] [address] Care Team Providers Care Floriculture Professor Name Role Phone Elvia Astudillo Primary Care Provider + Reason for Visit * Reason Onset Date Comments Request For Order(s) 09/27/2025 [facility] Order # [id number] Encounter Details Date Type Department Care Team (Late st Contact Info) Description 09/27/2025 Telephone Internal Medicine - [place] [address] [facility] [address] [place] [address] Carine Gomez MA Social History [...] faxed to [facility] [phone] * Carine Gomez MA - 09/27/2025 9:09 AM EDT [facility] Order # [id number] Please sign & documented in this encounter Plan of Treatment Upcoming Encounters Date Type Department Care Team (Late st Contact Info) Description 10/19/2025 9:45 AM EST Office Visit Internal Medicine - [place] 175 [facility] 200 [place] [phone] Elvia Astudillo PA [address] [place] [address] 12/09/2025 9:40 AM EST Office Visit Gastroenterology - 299 [facility] 299 [facility] [address] [place] [address] Aleisha Hutchins MD 230 [place] [address] 03/10/2026 9:30 AM EDT Office Visit Internal Medicine [facility] 175 [facility] 200 [place] [phone] Elvia Astudillo PA [address] [place] [address] documented as of this encounter Visit Diagnoses Not on filedocumented in this encounter Care Teams Floriculture Professor Relationship Specialty Start Date End Date Elvia Astudillo PA 175 [facility] 200 [place] [address] PCP - General Internal Medicine 06/26/20 documented as of this encounter
--- OUTSIDE RECORDS SUMMARY | 2025-09-30 12:31 | XMS_ITS | Clinical Summary ---
Author Organization [facility] Address [address] [place] [address] [place], [place] [id number] Phone Care Team Providers Care Tinning Equipment Tender Name Role Phone Ismael Hutchison MD Primary Care Provider [phone]- [phone] Social History Tobacco Use Types Packs/Day Years Used Date Smoking Tobacco: Never Assessed Comments Unknown Sex and Gender Information Value Date Recorded Sex Assigned at Not on file Legal Sex Female 5:03 PM EST Gender Identity Not on file Sexual Orientation Not on file Plan of Treatment Not on file Medical Devices Not on file [facility] H[facility] POS Care Teams Tinning Equipment Tender Relationship Specialty Start Date End Date Ismael Hutchison MD PCP - General 08/08/14 Additional Source Comments The information contained in this document represents components of the legal health record. It is not the complete legal health record.[facility]
--- OUTSIDE RECORDS SUMMARY | 2025-09-30 12:31 | XMS_ITS | Encounter Summary ---
Author Organization [facility] Address [address] [place] [address] Care Team Providers Care Sericulturist Name Role Phone Elvia Astudillo Primary Care Provider + Reason for Visit * Reason Onset Date Comments Request For Order(s) 09/27/2025 [facility] Cert 09/13/25-11/11/25 Plan Of Care Encounter Details Date Type Department Care Team (Late st Contact Info) Description 09/27/2025 Telephone Internal Medicine - [place] 175 [facility] [address] [place] [address] Carine Gomez MA Social History Tobacco Use [...] EDT Scanned into chart and faxed to [facility] [phone] * Carine Gomez MA - 09/27/2025 10:39 AM EDT [facility] Cert 09/13/25-11/11/25 Plan Of Care Please sign & documented in this encounter Plan of Treatment Upcoming Encounters Date Type Department Care Team (Late st Contact Info) Description 10/19/2025 9:45 AM EST Office Visit Internal Medicine - [place] 175 [facility] 200 [place] [phone] Elvia Astudillo PA 230 [place] [address] 12/09/2025 9:40 AM EST Office Visit Gastroenterology - [address] [facility] 299 [facility] [address] [place] [address] Aleisha Hutchins MD 230 [place] [address] 03/10/2026 9:30 AM EDT Office Visit Internal Medicine - [place] 175 [facility] 200 [place] [address] Elvia Astudillo PA [address] [place] [address] documented as of this encounter Visit Diagnoses Not on filedocumented in this encounter Care Teams Sericulturist Relationship Specialty Start Date End Date Elvia Astudillo PA 175 [facility] 200 [place] [address] PCP - General Internal Medicine 06/26/20 documented as of this encounter
--- OUTSIDE RECORDS SUMMARY | 2025-09-30 12:31 | XMS_ITS | Encounter Summary ---
Author Organization [facility] Address [address] [place] [address] Care Team Providers Care Computer Aided Design Designer Name Role Phone Elvia Astudillo Primary Care Provider + Encounter Details Date Type Department Care Team ([facility] st Contact Info) Description 09/16/2025 Telephone Internal Medicine - [place] 175 [facility] [address] [place] [address] Elvia Astudillo PA [address] [place] [address] Social History Tobacco Use Types Packs/Day Years [...] and informed him of new appt -[facility] - [id number] at 2:OOPM FYI documented in this encounter Plan of Treatment Upcoming Encounters Date Type Department Care Team (Late st Contact Info) Description 10/19/2025 9:45 AM EST Office Visit Internal Medicine [facility] 200 [place] [address] Elvia Astudillo PA [address] [place] [address] 12/09/2025 9:40 AM EST Office Visit Gastroenterology - 299 [facility] [address] [place] [address] Aleisha Hutchins MD [address] [place] [phone] 03/10/2026 9:30 AM EDT Office Visit Internal Medicine [facility] 200 [place] [address] Elvia Astudillo PA [address] [place] [address] documented as of this encounter Visit Diagnoses Not on filedocumented in this encounter Care Teams Computer Aided Design Designer Relationship Specialty Start Date End Date Elvia Astudillo PA 175 [facility] 200 [place] [address] PCP - General Internal Medicine 06/26/20 documented as of this encounter
--- OUTSIDE RECORDS SUMMARY | 2025-09-30 12:31 | XMS_ITS | Encounter Summary ---
Author Organization [facility] Address [address] [place] [address] Care Team Providers Care Shoe Repairer Apprentice Name Role Phone Elvia Astudillo Primary Care Provider + Reason for Visit * Reason Onset Date Comments Request For Order(s) 09/27/2025 [facility] Order # [id number] Encounter Details Date Type Department Care Team (Late st Contact Info) Description 09/27/2025 Telephone Internal Medicine - [place] 175 [facility] [address] [place] [address] Carine Gomez MA Social History [...] EDT Scanned into chart and faxed to [facility] [phone] * Carine Gomez MA - 09/27/2025 8:43 AM EDT [facility] Order # [id number] Please sign & documented in this encounter Plan of Treatment Upcoming Encounters Date Type Department Care Team (Late st Contact Info) Description 10/19/2025 9:45 AM EST Office Visit Internal Medicine - [place] 175 [facility] 200 [place] [address] Elvia Astudillo PA [address] [place] [address] 12/09/2025 9:40 AM EST Office Visit Gastroenterology - 299 [facility] 299 [facility] 419 [place] [address] Aleisha Hutchins MD 230 [place] [address] 03/10/2026 9:30 AM EDT Office Visit Internal Medicine [facility] 175 [facility] 200 [place] [address] Elvia Astudillo PA 230 [place] [address] documented as of this encounter Visit Diagnoses Not on filedocumented in this encounter Care Teams Shoe Repairer Apprentice Relationship Specialty Start Date End Date Elvia Astudillo PA 175 [facility] 200 [place] [address] PCP - General Internal Medicine 06/26/20 documented as of this encounter
--- OUTSIDE RECORDS SUMMARY | 2025-09-30 12:31 | XMS_ITS | Encounter Summary ---
Author Organization [facility] Address [address] [place] [address] Care Team Providers Care Education General Manager Name Role Phone Elvia Astudillo Primary Care Provider + Reason for Visit * Reason Onset Date Comments Request For Order(s) 09/27/2025 [facility] Order # [id number] Encounter Details Date Type Department Care Team (Late st Contact Info) Description 09/27/2025 Telephone Internal Medicine - [place] 175 [facility] [address] [place] [address] Carine Gomez MA Social History [...] EDT Scanned into chart and faxed to [facility] [phone] * Carine Gomez MA - 09/27/2025 9:13 AM EDT [facility] Order # [id number] Please sign & documented in this encounter Plan of Treatment Upcoming Encounters Date Type Department Care Team (Late st Contact Info) Description 10/19/2025 9:45 AM EST Office Visit Internal Medicine - [place] 175 [facility] 200 [place] [phone] Elvia Astudillo PA [address] [place] [address] 12/09/2025 9:40 AM EST Office Visit Gastroenterology - 299 [place] 299 [facility] [address] [place] [address] Aleisha Hutchins MD 230 [place] [address] 03/10/2026 9:30 AM EDT Office Visit Internal Medicine [facility] 175 [facility] 200 [place] [address] Elvia Astudillo PA [address] [place] [address] documented as of this encounter Visit Diagnoses Not on filedocumented in this encounter Care Teams Education General Manager Relationship Specialty Start Date End Date Elvia Astudillo PA 175 [facility] 200 [place] [address] PCP - General Internal Medicine 06/26/20 documented as of this encounter
--- OUTSIDE RECORDS SUMMARY | 2025-09-30 12:31 | XMS_ITS | Data Portability ---
Author Organization [place] [facility] Address [address] [place] [address] Care Team Providers Care Clinical Appeals Rn Name Role Phone RICHARD VAUGHN Primary Care Provider MARIVEL HEATH OTHER Assessment Encounter Date Assessment Date Assessment LastModified by Organization Details LastModified Time 09/10/2024 09/10/2024 Patient with history of granulomatosis with polyangiitis involving the sinuses. She is presently on medical therapy and doing well. There is some evidence of crusting in the left nasal cavity. I have encouraged her to use more saline nasal spray in the aerosol can. She also has a stable right tonsil cyst. Overall doing well. She will follow-up with rheumatology regarding the stiffness she is having in her neck and back. [email or web address] Not available 09/10/2024 10:50:44 Plan of Treatment Reminders Order Date Submit Date Provider Last Modified By Organization Details Last Modified Time Details Appointments Establish ed 30 2025 10:00A M ANTON VYAS MD Not available Not available Not available Lab None recorded. Referral None recorded. Procedures None recorded. Surgeries None recorded. Imaging None recorded. Medication Orders None recorded. Patient TargetsNo targets recorded. Patient InstructionsNo instructions recorded. Reason for Referral None Reported. Problems Name Problem SNOMED Code Status Onset Date Resolution Date Notes Provider Name and Address Organization Details Recorded Time Abnormal auditory perceptio n 43036962 Active 2013 Abnormal auditory perceptio n, unspecifi ed; Note: Date Diagnosed : 4 11:29 AM (388.40) Not Available [facility] 4 02:51:32 Unilatera l sensorine ural hearing loss with unrestric efe hearing on the contralat eral side Active 2013 Sensorine ural HL, unilatera l; Note: Date Diagnosed : 4 12:08 PM (389.15) Not Available [facility] 4 02:51:30 Patulous left Eustachia n tube 43249524352 68680 Active 2016 Patulous Eustachia n tube, left ear; Note: Date Diagnosed : 03/05/2017 2:51 PM (H69.02) Not Available [facility] 4 02:51:28 Sensorine ural hearing loss of bilateral ears 231460940 Active 2016 Sensorine ural hearing loss, bilateral ; Note: Date Diagnosed : 03/05/2017 2:06 PM (H90.3) Not Available [facility] 4 02:51:29 Bilateral disorder of Eustachia n tubes 18852180699 04360 Active 2016 Other specified disorders of Eustachia n tube, bilateral ; Note: Date Diagnosed : 03/05/2017 2:51 PM (H69.83) Not Available [facility] 4 02:51:30 Chronic sinusitis 78863749 Active 2020 Other chronic sinusitis ; Note: Date Diagnosed : 09/07/2021 9:38 AM (J32.8) Not Available [facility] 4 02:51:27 Granuloma tosis with polyangii tis 871412881 Active 2020 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; Note: Date Diagnosed : 4 11:29 AM (446.4) ; Start Date : 4 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; Note: Date Diagnosed : 09/07/2021 9:38 AM (M31.30) Not Available [facility] 4 02:51:32 Mass of neck 011365532 Active 2020 Localized swelling, mass and lump, neck; Note: Date Diagnosed : 09/07/2021 9:38 AM (R22.1) Not Available [facility] 4 02:51:28 Neck swelling 863249188 Active 2020 Localized swelling, mass and lump, neck; Note: Date Diagnosed : 09/07/2021 9:38 AM (R22.1) Not Available [facility] 4 02:51:28 Acute sinusitis 04952168 Active 2021 Acute sinusitis , unspecifi ed; Note: Date Diagnosed : 04/04/2022 12:37 PM (J01.90) Not Available [facility] 4 02:51:29 Chronic disease of tonsils AND/OR adenoids 85888910 Active 2022 Calculus, tonsil; Note: Date Diagnosed : 12/30/2022 2:20 PM (J35.8) Not Available [facility] 4 02:51:30 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; Note: Date Diagnosed : 02/19/2023 11:16 AM (D49.0) Not Available [facility] 4 02:51:32 Chronic tonsillit is 91405312 Active 2022 Chronic tonsillit is; Note: Date Diagnosed : 02/19/2023 11:16 AM (J35.01) Not Available [facility] 4 02:51:31 Chronic rhinitis 97958861 Active 2023 ANTON PERSAUD MD [address] [place], [place] [address], [address] , [facility] - [facility] 4 10:49:44 Tonsillar retention cyst 353835885 Active 2023 ANTON PERSAUD MD [address] [place], [place] [address], [address] , [facility] - [facility] 4 10:49:52 Problem Notes None recorded. Procedures Surgical History Date Name Laterality Status Provider Name and Address Organization Details Recorded Time JMSNasal/Sinus Endoscopy completed ANTON VILLALOBOS MD [address] [place] [address], [place], [address], [facility] - [facility] 09/10/2024 10:49:26 Imaging Results None recorded. Procedure Notes None recorded. Medical Equipment None Reported. Allergies Allergen ID Allergen Name Allergen Category Reaction Reaction Severity Criticality Documentation Date Start Date Code Code System Note Provider Name and Address Organization Details Recorded Time 860082 cefuroxim e axetil medicatio n nausea Not available Not available 04/13/2024 64424 RxNorm React ion: other react ion, upset stoma ch; Not Available [facility] 4 01:11:48 214046 Bactrim medicatio n hives Not available Not available 04/13/2024 62417 9 RxNorm React ion: skin rashe s, hives ;; Not Available [facility] 4 01:11:49 521708 Enbrel medicatio n other Not available Not available 04/13/2024 82066 1 RxNorm React ion: other react ion, Unkno wn; Not Available [facility] 4 01:11:53 Medications Name Sig Start Date Stop Date Status Note LastModified by Organization Details LastModified Time nifedipin e ER 30 mg tablet,ex tended release 24 hr active Not Available Not Available Not Available dicloxaci llin 500 mg capsule active Medicati on ID: 047564 B rand Name: dicloxac illin Se nd Method: E-Prescr ibed Sub s Allowed: subs OK Medic ationGen ericName : dicloxac illin Not Available Not Available Not Available gabapenti n 600 mg tablet active Not Available Not Available Not Available valacyclo vir 1 gram tablet active Not Available Not Available Not Available famotidin e 40 mg tablet active Not Available Not Available Not Available prednison e 5 mg tablet 02/19 completed Medicati on ID: 44213 Du ration Value: 30 Brand Name: predniso ne Send Method: E-Prescr ibed Sub s Allowed: subs OK Medic ationGen ericName : predniso ne Not Available Not Available Not Available ciproflox acin 500 mg tablet Take 1 tablet twice a day 2021 active Medicati on ID: 088032 D uration Value: 10 Brand Name: ciproflo xacin HCl Send Method: E-Prescr ibed Sub s Allowed: subs OK Medic ationGen ericName : ciproflo xacin HCl Not Available Not Available Not Available mycopheno late mofetil 500 mg tablet TAKE 3 TABLETS BY MOUTH TWICE A DAY active Not Available Not Available No t Available hydrocort isone 2.5 % topical cream with perineal applicato r active Not Available Not Available Not Available amoxicill in 875 mg tablet Take 1 tablet by mouth twice a day 09/10 completed Medicati on ID: 860068 D uration Value: 7 Prescri bed By Name: PARDEEP Singh nd Name: amoxicil latia Send Method: E-Prescr ibed Sub s Allowed: subs OK Medic ationGen ericName : amoxicil laita Not Available Not Available Not Available prednison e 1 mg tablet active Not Available Not Available Not Available nifedipin e 10 mg capsule 02/19 completed Medicati on ID: 71334 Du ration Value: 90 Brand Name: nifedipi ne Send Method: E-Prescr ibed Sub s Allowed: subs OK Medic ationGen ericName : nifedipi ne Not Available Not Available Not Available doxycycli ne monohydra te 100 mg capsule active Not Available Not Available Not Available hydrocodo ne 7.5 mg-acetam inophen 325 mg tablet 02/19 completed Medicati on ID: 40136 Du ration Value: 5 Brand Name: hydrocod one-acet aminophe n Send Method: E-Prescr ibed Sub s Allowed: subs OK Medic ationGen ericName : hydrocod one-acet aminophe n Not Available Not Available Not Available cephalexi n 500 mg capsule TAKE 1 CAPSULE BY MOUTH TWICE A DAY active Not Available Not Available No t Available simvastat in 20 mg tablet 02/19 completed Medicati on ID: 15587 Du ration Value: 30 Brand Name: simvasta tin Send Method: E-Prescr ibed Sub s Allowed: subs OK Medic ationGen ericName : simvasta tin Not Available Not Available Not Available clotrimaz ole-betam ethasone 1 %-0.05 % topical cream active Medicati on ID: 880763 B rand Name: mayariluis enrique zole-bet amethaso ne Send Method: E-Prescr ibed Sub s Allowed: subs OK Medic ationGen ericName : clotrima zole-bet amethaso ne Not Available Not Available Not Available lansopraz ole 30 mg capsule,d elayed release 03/05 completed Medicati on ID: 18066 Du ration Value: 90 Reason: () Brand Name: lansopra zole Sen d Method: E-Prescr ibed Sub s Allowed: subs OK Medic ationGen ericName : lansopra zole Not Available Not Available Not Available balsalazi de 750 mg capsule active Not Available Not Available Not Available mupirocin 2 % topical ointment APPLY DAILY TO SKIN TO AFFECTED AREA EVERY DAY active Not Available Not Available No t Available levofloxa yann 500 mg tablet Take 1 tablet by mouth once a day 09/12 completed Medicati on ID: 944424 D uration Value: 10 Prescri bed By Name: PARDEEP Light nd Name: levoflox acin Sen d Method: E-Prescr ibed Sub s Allowed: subs OK Medic ationGen ericName : levoflox acin Not Available Not Available Not Available timolol maleate 0.5 % eye drops active Not Available Not Available Not Available metformin ER 500 mg tablet,ex tended release 24 hr active Not Available Not Available Not Available amoxicill in 875 mg-potass ium clavulana te 125 mg tablet TAKE 1 TABLET BY MOUTH EVERY 12 HOURS FOR 6 WEEEKS active Not Available Not Available No t Available oxycodone 5 mg tablet TAKE 0.5 TABLET BY MOUTH EVERY 6 HOURS NEEDED FOR SEVERE PAIN X2 WEEKS active Not Available Not Available No t Available Restasis 0.05 % eye drops in a dropperet te INSTILL 1 DROP INTO BOTH EYES TWICE A DAY DIRECTED active Not Available Not Available No t Available OneTouch Delica Lancets 33 gauge 02/19 completed Medicati on ID: 73835 Du ration Value: 90 Brand Name: OneTouch Delica Lancets Send Method: E-Prescr ibed Sub s Allowed: subs OK Medic ationGen ericName : OneTouch Delica Lancets Not Available Not Available Not Available Vitals Date Recorded Body height Body mass index (BMI) Body weight Provider Name and Address Organization Details Last Updated DateTime 09/10/2024 160.02 cm 14.7 kg/m2 15402.17 g Stefan Matos [place] [facility] 09/10/2024 10:29:29 Social History None recorded. Functional Status None recorded. Mental Status None recorded. Family History Nothing Reported. Medical History No medical history recorded. Gynecological HistoryNo gynecological history recorded. Obstetrics History GPAL:G 0 P 0 0 0 0 Past Encounters Encounter ID Performer Location Encounter Start Date Encounter Closed Date Diagnosis/Indication Diagnosis SNOMED-CT Code Diagnosis ICD10 Code Diagnosis IMO Codes Diagnosis Note [id number] ANTON PERSAUD MD [facility] [address] [address] 09/10/2024 10:21:18 09/10/2024 12:17:37 Granulomatosis with polyangiitis 729665814 M31.30 Chronic rhinitis 2334568 6 J31.0 Tonsillar retention cyst 361415297 J35.8 Health Concerns Section Related Observation LastModified by Organization Detai ls LastModified Time None Recorded Concern Status LastModified by Organization Details LastModified Time None Recorded Advance Directives Directive None Recorded Payers Insurance Date Sequence Insurance Name Policy Number Policy Capps Covered Member ID Capps Member ID Guarantor Name 09/13/2024 2 [facility] (PP[facility]) [id number] Ita L Bein [id number] Ita L Bein 09/13/2024 1 MEDICARE B-AR: [employer] Ita L Bein [id number] Ita L Bein Notes Date Note Type Note Provider Name and Address Organization Details Recorded Time 09/10/2024 text/html ROS as noted in the HPI Patient with history of GPA presently taking mycophenolate and 4 mg daily of prednisone. Overall she has minimal nasal symptoms. Occasional headache. Follow-up delayed due to complications following bunion surgery. No visual loss or hearing change. Difficulty walking and stiff neckOccasional PND and tonsil stones ANTON VILLALOBOS MD [address] [place] [address], [address], [facility] - [facility] 09/10/2024 10:52:35 OBGyn Episode No OBEpisode recorded.
--- OUTSIDE RECORDS SUMMARY | 2025-09-30 12:31 | XMS_ITS | Encounter Summary ---
Author Organization [facility] Address [address] [place] [address] Care Team Providers Care Belt Loop Machine Operator Name Role Phone Elvia Astudillo Primary Care Provider + Encounter Details Date Type Department Care Team (Late Contact Info) Description 09/04/2025 Results Follow-Up Internal Medicine [facility] 175 [facility] 200 [place] [address] Elvia Astudillo PA [address] [place] [address] Social History Tobacco Use Types Packs/Day Years [...] Visit Internal Medicine [facility] 175 [facility] [address] [place] [phone] Elvia Astudillo PA [address] [place] [address] 12/09/2025 9:40 AM EST Office Visit Gastroenterology - 299 [facility] 299 [facility] [address] [place] [phone] Aleisha Hutchins MD 230 [place] [phone] 03/10/2026 9:30 AM EDT Office Visit Internal Medicine - [place] [address] [phone] Elvia Astudillo PA 230 [place] [address] documented as of this encounter Visit Diagnoses Not on filedocumented in this encounter Care Teams Belt Loop Machine Operator Relationship Specialty Start Date End Date Elvia Astudillo PA [address] [address] PCP - General Internal Medicine 06/26/20 documented as of this encounter
[2025-09-30 13:19] LABS: MANUAL DIFF FLAG NO
[2025-09-30 13:25] LABS: Appearance Urine Clear; Glucose Urine UA Negative (Negative); PH 6.5 (5.0-9.0); Specific Gravity - Urine 1.010 (1.005-1.025); UMIC TRIGGER UA YES
[2025-09-30 13:27] LABS: Hematocrit 33.2 % (37.0-47.0); Hemoglobin 11.2 g/dl (12.0-16.0); Imm Gran Abs Auto 0.02 X10*3/uL (0.00-0.03); Imm Gran Pct Auto 0.3 % (0.0-0.4); Lymphocytes Absolute Auto 1.3 X10*3/uL (1.2-4.9); Mean Corpuscular HGB Conc 33.7 g/dl (31.0-35.0); Mean Corpuscular Hemoglobin 37.6 pg (27.0-33.0); NRBC Abs Auto 0.000 X10*3/uL (0.0-0.012); NRBC Pct Auto 0.0 /100WBC (0.0-0.2); Platelet Count 305 X10*3/uL (160-400); Red Blood Count 2.98 X10*6/uL (4.20-5.50); White Blood Count 7.5 X10*3/uL (4.8-10.8)
[2025-09-30 13:30] LABS: Mean Corpuscular Volume 111.4 fL (80.0-98.0)
[2025-09-30 14:18] LABS: Total Protein Urine Random 29 mg/dL (<12)
[2025-09-30 18:19] LABS: Alanine Aminotransferase 16 U/L (0-31); Albumin Level 4.2 g/dL (3.5-5.0); Alkaline Phosphatase 51 U/L (39-117); Anion Gap 15 (12-20); Aspartate Amino Transferase 22 U/L (5-31); Blood Urea Nitrogen 13 mg/dL (9-16); Calcium 9.3 mg/dL (8.4-10.2); Carbon Dioxide 26 mmol/L (22-29); Chloride 91 mmol/L (96-108); Estimated Glomerular Filt Rate > 60; Potassium 4.6 mmol/L (3.3-5.1); Sodium 127 mmol/L (135-145); Total Protein 6.4 g/dL (6.5-8.0)
[2025-10-03 18:54] LABS: Proteinase 3 PR3 Antibodies <1.0 AI
[2025-10-06 11:39] LABS: C-ANCA Titer 1:20 titer (<1:20); Neutrophil Cyto Ab Screen C-ANCA POS (NEGATIVE)
== END 2025-09-30 10:58 | disposition home or self-care (01) ==
LOC: HO.HKASLDS 10:57
PROVIDERS: PCP Internal Medicine; Visit Provider Internal Medicine Hypertension Specialist
DX: Z01.84 Encounter for antibody response examination (principal); I10 Essential (primary) hypertension
CPT/HCPCS: 36415; 80053; 81001; 82570; 84156; 85025; 86021; 86036; 86037

== ENCOUNTER 2025-10-05 09:27 | Outpatient (AMB) | payer MEDICARE, SELFPAY ==
--- NOTE | 2025-10-05 09:35 | HO.NEPHOV_ITS ---
Vital Signs 10/05/25 09:37 Height 5 ft 2 in Weight 87 lb BMI 15.9 BP 188/80 H Blood Pressure Location Lt brachial Position Sitting Pulse 63 Pulse Source Pulse Oximeter Pulse Oximetry (%) 97 Oxygen Delivery Method Room Air Intake Visit Reasons: Follow up confirmed Corrugated Sheet Material Sheeter Required: No Accompanied by: Self / Same As Patient Allergies adalimumab Allergy (Unknown, Verified 10/05/25 09:37) Rash alendronate sodium Allergy (Unknown, Verified 10/05/25 09:37) Unknown azathioprine Allergy (Unknown, Verified 10/05/25 09:37) Unknown cefuroxime Allergy (Unknown, Verified 10/05/25 09:37) Nausea and Vomiting clindamycin Allergy (Unknown, Verified 10/05/25 09:37) Gastrointestinal Upset etanercept Allergy (Unknown, Verified 10/05/25 09:37) Unknown golimumab Allergy (Unknown, Verified 10/05/25 09:37) Unknown ibandronate sodium Allergy (Unknown, Verified 10/05/25 09:37) Unknown levofloxacin Allergy (Unknown, Verified 10/05/25 09:37) GI Intolerance lisinopril Allergy (Unknown, Verified 10/05/25 09:37) Cough methotrexate Allergy (Unknown, Verified 10/05/25 09:37) Unknown risedronate sodium Allergy (Unknown, Verified 10/05/25 09:37) Unknown sulfamethoxazole (From Sulfamethoxazole-Trimethoprim) Allergy (Unknown, Verified 10/05/25 09:37) Hives trimethoprim (From Sulfamethoxazole-Trimethoprim) Allergy (Unknown, Verified 10/05/25 09:37) Hives covid 19 vaccine Bivalent, Moderna Allergy (Unknown, Uncoded 09/26/25 15:19) Hives Medication List - Last Reconciled 10/05/25 by Bradley Rosenberg MD balsalazide 750 mg PO TID cyclosporine 0.05% (Restasis) 1 drp ophthalmic (eye) BID doxycycline monohydrate 100 mg PO BID famotidine 40 mg PO DAILY ferrous sulfate 134 mg PO DAILY gabapentin 600 mg PO TID labetalol 100 mg PO Q12H metformin ER 1,000 mg PO BID mycophenolate mofetil 1,500 mg PO BID nifedipine ER 30 mg PO QAM prednisone 4 mg PO DAILY timolol maleate 0.5% 1 drp ophthalmic (eye) BID valacyclovir 1,000 mg PO DAILY valsartan 80 mg PO DAILY HPI Comments Details: The patient is a 70-year-old female presenting with hypertension management and associated complications. The patient has a long-standing history of essential hypertension, first noted during her teenage years. Despite treatment with labetalol, nifedipine, and valsartan, her blood pressure remains poorly controlled, often reaching 180 mmHg in the mornings before medication. She experiences significant peripheral edema, particularly in the feet and legs, which worsens with nifedipine use. The patient also has a history of diabetes mellitus, managed with metformin, and reports an A1c of 6.5%. Additionally, she has been diagnosed with Siddharth's Granulomatosis, confirmed through blood work and biopsy, and is currently managed with mycophenolate. Neuropathy, affecting her legs and feet, is managed with gabapentin, although she reports significant pain at night. She has also experienced a brain hemorrhage, with a recent CT confirming stability and no further complications. 10/05/25 The patient is a 70-year-old female presenting with hypertension management. She reports a history of elevated blood pressure readings, with a recent measurement of 188/80 mmHg. The patient is currently on a regimen of labetalol, nifedipine, and valsartan, but her blood pressure remains elevated. The patient experiences significant peripheral edema, particularly in the legs and feet, which worsens by the end of the day. This swelling has been attributed to nifedipine, and she reports difficulty wearing shoes due to the edema. The patient has been advised to reduce her water intake due to hyponatremia, which may be exacerbated by excessive fluid consumption. She drinks approximately 48 ounces of water daily, along with tea and decaffeinated coffee. 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 GERD (gastroesophageal reflux disease) DM type 2 (diabetes mellitus, type 2) Crohn's disease Chronic sinusitis Anxiety Physical Exam Vital Signs: Last Vital Signs Pulse 63 10/05/25 09:37 BP 188/80 H 10/05/25 09:37 Pulse Ox 97 10/05/25 09:37 Oxygen Delivery Method Room Air 10/05/25 09:37 BMI result Body Mass Index 15.9 Results Reviewed Nephrology Results: Hgb, (12.0-16.0) 11.2 g/dl L 09/30/25 WBC, (4.8-10.8) 7.5 X10*3/uL 09/30/25 Plt Count, (160-400) 305 X10*3/uL 09/30/25 Sodium, (135-145) 127 mmol/L L 09/30/25 Potassium, (3.3-5.1) 4.6 mmol/L 09/30/25 Chloride, (96-108) 91 mmol/L L 09/30/25 Carbon Dioxide, (22-29) 26 mmol/L 09/30/25 BUN, (9-16) 13 mg/dL 09/30/25 Creatinine, (0.5-1.4) 0.53 mg/dL 09/30/25 Calcium, (8.4-10.2) 9.3 mg/dL 09/30/25 Urine Protein, (Neg-Trace) 30 (1+) mg/dL H 09/30/25 Urine Creatinine 11.15 mg/dL 09/30/25 Assessment & Plan Assessment & Plan (1) HTN (hypertension): Code(s): I10 - Essential (primary) hypertension Category: Medical Plan 1. Essential Hypertension - Plan to conduct 24-hour blood pressure monitoring to assess fluctuations and adjust medications accordingly. Waiting for BP cuff - INCrease Valsartan to 80 mg BID - Evaluate the need to discontinue nifedipine due to associated edema. 2. Peripheral Edema - Assess for proteinuria to rule out renal causes of edema. STOP nifedipine . 3. Diabetes Mellitus - Continue management with metformin and monitor A1c levels. 4. Siddharth's Granulomatosis - Continue current management with mycophenolate. Await urine for protein : Creatinine and ANCA/ PR3/MPO 5. Neuropathy - Continue gabapentin for neuropathic pain management. - Consider referral to spray ii painter for further evaluation. 6. h/o Brain Hemorrhage - Follow-up with neurology and repeat MRI to monitor for any changes. 7. Hyponatremia > CHronic Check urine studies and Osm Limit PO water intake REpeat Na levels in 1-2 weeks Orders: Orders Sodium Urine Random 1 Week E87.1 - Hypo-osmolality and hyponatremia, I10 - Essential (primary) hypertension Protein Electrophoresis, Serum 1 Week E87.1 - Hypo-osmolality and hyponatremia, I10 - Essential (primary) hypertension Creatinine Urine 1 Week E87.1 - Hypo-osmolality and hyponatremia, I10 - Essential (primary) hypertension Osmolality, Serum 1 Week E87.1 - Hypo-osmolality and hyponatremia, I10 - Essential (primary) hypertension, N18.30 - Chronic kidney disease, stage 3 unspecified Osmolality Urine 1 Week E87.1 - Hypo-osmolality and hyponatremia, I10 - Essential (primary) hypertension Total Protein Urine Random 1 Week E87.1 - Hypo-osmolality and hyponatremia, I10 - Essential (primary) hypertension Potassium Urine Random 1 Week E87.1 - Hypo-osmolality and hyponatremia, I10 - Essential (primary) hypertension Medications: Changed From valsartan 80 mg PO DAILY To valsartan 80 mg PO BID 60 tabs 1RF Coding Level of Care Code Est Pt Level 4 (39808) Diagnoses HTN (hypertension) I10
[2025-10-05 09:37] VITALS: BP 188/80; PULSE 63; O2SAT 97; BMI 15.9
--- OUTSIDE RECORDS SUMMARY | 2025-10-05 10:32 | XMS_ITS | Data Portability ---
Author Organization [place] - [facility], Allergy Address [address] [place] [address] Care Team Providers Care Farrowing Manager Name Role Phone RICHARD VAUGHN Primary Care [...] Details Recorded Time Abnormal auditory perceptio n 30591763 Active 2013 Abnormal auditory perceptio n, unspecifi ed; Note: Date Diagnosed : 4 11:29 AM (388.40) Not Available [facility] 4 02:51:32 Unilatera l sensorine ural hearing loss with unrestric efe hearing on the contralat eral side Active 2013 Sensorine ural HL, unilatera l; Note: Date Diagnosed : 4 12:08 PM (389.15) Not Available [facility] 4 02:51:30 Patulous left Eustachia n tube 23705367125 91633 Active 2016 Patulous Eustachia n tube, left ear; Note: Date Diagnosed : 03/05/2017 2:51 PM (H69.02) Not Available [facility] 4 02:51:28 Sensorine ural hearing loss of bilateral ears 763519878 Active 2016 Sensorine ural hearing loss, bilateral ; Note: Date Diagnosed : 03/05/2017 2:06 PM (H90.3) Not Available [facility] 4 02:51:29 Bilateral disorder of Eustachia n tubes 91951419908 92516 Active 2016 Other specified disorders of Eustachia n tube, bilateral ; Note: Date Diagnosed : 03/05/2017 2:51 PM (H69.83) Not Available [facility] 4 02:51:30 Chronic sinusitis 38921355 Active 2020 Other chronic sinusitis ; Note: Date Diagnosed : 09/07/2021 9:38 AM (J32.8) Not Available [facility] 4 02:51:27 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; Note: Date Diagnosed : 4 11:29 AM (446.4) ; Start Date : 4 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; Note: Date Diagnosed : 09/07/2021 9:38 AM (M31.30) Not Available [facility] 4 02:51:32 Mass of neck 078416724 Active 2020 Localized swelling, mass and lump, neck; Note: Date Diagnosed : 09/07/2021 9:38 AM (R22.1) Not Available [facility] 4 02:51:28 Neck swelling 014629960 Active 2020 Localized swelling, mass and lump, neck; Note: Date Diagnosed : 09/07/2021 9:38 AM (R22.1) Not Available [facility] 4 02:51:28 Acute sinusitis 78185322 Active 2021 Acute sinusitis , unspecifi ed; Note: Date Diagnosed : 04/04/2022 12:37 PM (J01.90) Not Available [facility] 4 02:51:29 Chronic disease of tonsils AND/OR adenoids 52936192 Active 2022 Calculus, tonsil; Note: Date Diagnosed : 12/30/2022 2:20 PM (J35.8) Not Available [facility] 4 02:51:30 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; Note: Date Diagnosed : 02/19/2023 11:16 AM (D49.0) Not Available [facility] 4 02:51:32 Chronic tonsillit is 16398479 Active 2022 Chronic tonsillit is; Note: Date Diagnosed : 02/19/2023 11:16 AM (J35.01) Not Available [facility] 4 02:51:31 Chronic rhinitis 81767944 Active 2023 ANTON PERSAUD MD [address] [place], [place] [address], [address] , [facility] - [facility] 4 10:49:44 Tonsillar retention cyst 630718321 Active 2023 ANTON PERSAUD MD [address] [place], [place] [address], [address] , [facility] - [facility] 4 10:49:52 Problem Notes None recorded. Procedures Surgical History Date Name Laterality Status Provider Name and Address Organization Details Recorded Time JMSNasal/Sinus Endoscopy completed ANTON VILLALOBOS MD [address] [place] [address], [place], [address], [facility] - [facility] 09/10/2024 10:49:26 Imaging Results None recorded. Procedure Notes None recorded. Medical Equipment None Reported. Allergies Allergen ID Allergen Name Allergen Category Reaction Reaction Severity Criticality Documentation Date Start Date Code Code System Note Provider Name and Address Organization Details Recorded Time 761983 cefuroxim e axetil medicatio n nausea Not available Not available 04/13/2024 60794 RxNorm React ion: other react ion, upset stoma ch; Not Available [facility] 4 01:11:48 613536 Bactrim medicatio n hives Not available Not available 04/13/2024 31018 9 RxNorm React ion: skin rashe s, hives ;; Not Available [facility] 4 01:11:49 100064 Enbrel medicatio n other Not available Not available 04/13/2024 98786 1 RxNorm React ion: other react ion, Unkno wn; Not Available [facility] 4 01:11:53 Medications Name Sig Start Date Stop Date Status Note LastModified by Organization Details LastModified Time nifedipin e ER 30 mg tablet,ex tended release 24 hr active Not Available Not Available Not Available dicloxaci llin 500 mg capsule active Medicati on ID: 025776 B rand Name: dicloxac illin Se nd [...] mg tablet 02/19 completed Medicati on ID: 68267 Du ration Value: 30 Brand Name: predniso ne Send Method: E-Prescr ibed Sub s Allowed: subs OK Medic ationGen ericName : predniso ne Not Available Not Available Not Available ciproflox acin 500 mg tablet Take 1 tablet twice a day 2021 active Medicati on ID: 022720 D uration Value: 10 Brand Name: ciproflo [...] a day 09/10 completed Medicati on ID: 102531 D uration Value: 7 Prescri bed By Name: PARDEEP Singh nd Name: amoxicil latia Send Method: E-Prescr ibed Sub s Allowed: subs OK Medic ationGen ericName : amoxicil latia Not Available Not Available Not Available prednison e 1 mg tablet active Not Available Not Available Not Available nifedipin e 10 mg capsule 02/19 completed Medicati on ID: 27865 Du ration Value: 90 Brand Name: nifedipi ne Send Method: E-Prescr ibed Sub s Allowed: subs OK Medic ationGen ericName : nifedipi ne Not Available Not Available Not Available doxycycli ne monohydra te 100 mg capsule active Not Available Not Available Not Available hydrocodo ne 7.5 mg-acetam inophen 325 mg tablet 02/19 completed Medicati on ID: 00498 Du ration Value: 5 Brand Name: hydrocod [...] mg tablet 02/19 completed Medicati on ID: 00364 Du ration Value: 30 Brand Name: simvasta tin Send Method: E-Prescr ibed Sub s Allowed: subs OK Medic ationGen ericName : simvasta tin Not Available Not Available Not Available clotrimaz ole-betam ethasone 1 %-0.05 % topical cream active Medicati on ID: 351858 B rand Name: mayariluis enrique zole-bet amethaso ne Send Method: E-Prescr ibed Sub s Allowed: subs OK Medic ationGen ericName : clotrima zole-bet amethaso ne Not Available Not Available Not Available lansopraz ole 30 mg capsule,d elayed release 03/05 completed Medicati on ID: 69370 Du ration Value: 90 Reason: () Brand [...] a day 09/12 completed Medicati on ID: 816370 D uration Value: 10 Prescri bed By [...] 33 gauge 02/19 completed Medicati on ID: 33448 Du ration Value: 90 Brand Name: OneTouch Delica Lancets Send Method: E-Prescr ibed Sub s Allowed: subs OK Medic ationGen ericName : OneTouch Delica Lancets Not Available Not Available Not Available Vitals Date Recorded Body height Body mass index (BMI) Body weight Provider Name and Address Organization Details Last Updated DateTime 09/10/2024 160.02 cm 14.7 kg/m2 40527.17 g Stefan Matos [place] - [facility] 09/10/2024 10:29:29 Social History None recorded. Functional Status None recorded. Mental Status None recorded. Family History Nothing Reported. Medical History No medical history recorded. Gynecological HistoryNo gynecological history recorded. Obstetrics History GPAL:G 0 P 0 0 0 0 Past Encounters Encounter ID Performer Location Encounter Start Date Encounter Closed Date Diagnosis/Indication Diagnosis SNOMED-CT Code Diagnosis ICD10 Code Diagnosis IMO Codes Diagnosis Note [id number] ANTON PERSAUD MD [facility] [address] [address] 09/10/2024 10:21:18 09/10/2024 12:17:37 Granulomatosis with polyangiitis 721262895 M31.30 Chronic rhinitis 1033759 6 J31.0 Tonsillar retention cyst 392376565 J35.8 Health Concerns Section Related Observation LastModified by Organization Detai ls LastModified Time None Recorded Concern Status LastModified by Organization Details LastModified Time None Recorded Advance Directives Directive None Recorded Payers Insurance Date Sequence Insurance Name Policy Number Policy Capps Covered Member ID Capps Member ID Guarantor Name 09/13/2024 2 [facility] (PP[facility]) [id number] Ita L Bein [id number] Ita L Bein 09/13/2024 1 MEDICARE B-NE: [employer] Ita L Bein [id number] Ita L Bein Notes Date Note [...] PND and tonsil stones ANTON VILLALOBOS MD [address] [place] [address], [address], [facility] - [facility] 09/10/2024 10:52:35 OBGyn Episode No OBEpisode recorded.
--- OUTSIDE RECORDS SUMMARY | 2025-10-05 10:32 | XMS_ITS | Clinical Summary ---
Author Organization [facility] Address [address] [place] [address] [place], [place] [id number] Phone Care Team Providers Care Veneer Redrier Name Role Phone Ismael Hutchison MD Primary Care Provider [phone] Social History Tobacco Use Types Packs/Day Years Used Date Smoking Tobacco: Never Assessed Comments Unknown Sex and Gender Information Value Date Recorded Sex Assigned at Not on file Legal Sex Female 5:03 PM EST Gender Identity Not on file Sexual Orientation Not on file Plan of Treatment Not on file Medical Devices Not on file [email or web address] POS [facility] [[email or web address] HMO [facility] POS Care Teams Veneer Redrier Relationship Specialty Start Date End Date Ismael Hutchison MD PCP - General 08/08/14 Additional Source Comments The information contained in this document represents components of the legal health record. It is not the complete legal health record.[facility]
--- OUTSIDE RECORDS SUMMARY | 2025-10-05 10:32 | XMS_ITS | Encounter Summary ---
Author Organization [facility] Address [address] [place] [address] Care Team Providers Care Recreation Engineer Name Role Phone Elvia Astudillo Primary Care Provider + Reason for Visit * Reason Onset Date Comments Request For Order(s) 09/30/2025 [facility] Order # [id number] Encounter Details Date Type Department Care Team (Late st Contact Info) Description 09/30/2025 Telephone Internal Medicine - [place] 175 [facility] [address] [place] [address] Carine Gomez MA Social History [...] Progress Notes * Carine Gomez MA - 10/04/2025 8:37 AM EST Scanned into chart and faxed to [facility] [phone] * Carine Gomez MA - 09/30/2025 7:55 AM EDT [facility] Order # [id number] Please sign & documented in this encounter Plan of Treatment Upcoming Encounters Date Type Department Care Team (Late st Contact Info) Description 10/19/2025 9:45 AM EST Office Visit Internal Medicine - [place] [address] [facility] [address] [place] [address] Elvia Astudillo PA 230 [facility] [place] [address] 12/09/2025 9:40 AM EST Office Visit Gastroenterology - [address] [place] [address] [facility] [address] [place] [address] Aleisha Hutchins MD 299 [facility] [address] [place] [address] 03/10/2026 9:30 AM EDT Office Visit Internal Medicine [facility] [address] [facility] [address] [place] [phone] Elvia Astudillo PA 230 [place] [address] documented as of this encounter Visit Diagnoses Not on filedocumented in this encounter Care Teams Recreation Engineer Relationship Specialty Start Date End Date Elvia Astudillo PA 175 [facility] [address] [place] [address] PCP - General Internal Medicine 06/26/20 documented as of this encounter
--- OUTSIDE RECORDS SUMMARY | 2025-10-05 10:32 | XMS_ITS | Encounter Summary ---
Author Organization [facility] Address [address] [place] [address] Care Team Providers Care Bomb Technician Name Role Phone Elvia Astudillo Primary Care Provider + Encounter Details Date Type Department Care Team (Late Contact Info) Description 09/04/2025 Results Follow-Up Internal Medicine [facility] 175 [facility] 200 [place] [address] Elvia Astudillo PA [address] [place] [address] Social History Tobacco Use Types Packs/Day Years [...] 9:45 AM EST Office Visit Internal Medicine [facility] 175 [facility] [address] [place] [phone] Elvia Astudillo PA [address] [place] [address] 12/09/2025 9:40 AM EST Office Visit Gastroenterology - 299 [facility] 299 [facility] [address] [place] [phone] Aleisha Hutchins MD 299 [facility] [address] [place] [address] 03/10/2026 9:30 AM EDT Office Visit Internal Medicine - [place] 175 [facility] [address] [place] [phone] Elvia Astudillo PA 230 [place] [address] documented as of this encounter Visit Diagnoses Not on filedocumented in this encounter Care Teams Bomb Technician Relationship Specialty Start Date End Date Elvia Astudillo PA 175 [facility] [address] [place] [address] PCP - General Internal Medicine 06/26/20 documented as of this encounter
--- OUTSIDE RECORDS SUMMARY | 2025-10-05 10:32 | XMS_ITS | Encounter Summary ---
Author Organization [facility] Address [address] [place] [address] Care Team Providers Care Avionics Manager Name Role Phone Elvia Astudillo Primary Care Provider + Encounter Details Date Type Department Care Team ([facility] st Contact Info) Description 09/16/2025 Telephone Internal Medicine - [place] 175 [facility] [address] [place] [address] Elvia Astudillo PA [address] [place] [address] Social History Tobacco Use Types Packs/Day Years [...] office and informed him of new appt -97[facility] - [phone] at 2:OOPM FYI documented in this encounter Plan of Treatment Upcoming Encounters Date Type Department Care Team (Late st Contact Info) Description 10/19/2025 9:45 AM EST Office Visit Internal Medicine [facility] 175 [facility] [address] [place] [phone] Elvia Astudillo PA 230 [place] [address] 12/09/2025 9:40 AM EST Office Visit Gastroenterology - [address] [place] 299 [facility] [address] [place] [address] Aleisha Hutchins MD [address] [address] 03/10/2026 9:30 AM EDT Office Visit Internal Medicine [facility] 175 [facility] 200 [place] [address] Elvia Astudillo PA 230 [place] [address] documented as of this encounter Visit Diagnoses Not on filedocumented in this encounter Care Teams Avionics Manager Relationship Specialty Start Date End Date Elvia Astudillo PA [address] [address] PCP - General Internal Medicine 06/26/20 documented as of this encounter
--- OUTSIDE RECORDS SUMMARY | 2025-10-05 10:32 | XMS_ITS | Clinical Summary ---
Author Organization 175 [facility] Address [address] [place] [address] Phone Care Team Providers Care Crime Scene Analyst Name Role Phone Elvia Astudillo Primary Care [...] current use of insulin ([facility] V24, [facility] V28) Take 2 tablets (1,000 mg total) [...] whether rheumatoid factor present ([facility] V24, [facility] V28) Take 1 tablet by mouth at bedtime as needed for severe pain. Max Daily Amount: 1 tablet 7 tablet 09/22/20 25 Active gabapentin (NEURONTIN) 600 mg tablet Take 1 tablet (600 mg total) by mouth 4 (four) times a day. 360 tablet 1 09/27/20 Active predniSONE (DELTASONE) 1 mg tablet Take 4 tablets (4 mg total) by mouth. 12/10/19 Discontinued ketoconazole (NIZORAL) 2 % shampooIndicatio ns:Dandruff SHAMPOO DAILY LEAVE ON FOR 5-10 MINUTES, THEN RINSE 120 mL 02/11/20 Discontinued linaCLOtide (LINZESS) 145 mcg capsule Take 1 capsule (145 mcg total) by mouth 1 (one) time each day before breakfast. 90 capsule 1 07/21/20 Discontinued gabapentin (NEURONTIN) 600 mg tablet Take [...] DX:Chronic sinusitis Crohn's disease ([facility] V24, [facility] V28) Overview (10/15/2024): DX:Crohn's disease (HCC) DM type 2 (diabetes mellitus , type 2) ([facility] V24, [facility] V28) Overview (10/15/2024): DX:DM type 2 (diabetes mellitus, type 2) ([facility]) GERD (gastroesophageal reflux disease) Overview (10/15/2024): DX:GERD [...] DX:Raynaud's disease Rheumatoid arthritis ([facility] V24, [facility] V28) Overview (10/15/2024): DX:Rheumatoid arthritis (HCC) 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 ([facility] V24, [facility] V28) Overview (10/15/2024): DX:Wegeners granulomatosis Encounters Date Type Department Care Team Description 10/04/2025 Telephone Internal Medicine [address] [place] [address] Carine Gomez [place] 09/30/2025 Telephone Internal Medicine - [place] [address] [address] [place], [place] 09/27/2025 Telephone Internal Medicine [address] [address] Colon, [place] 09/27/2025 Telephone Internal [address] [address] Colon, [place] 09/27/2025 Telephone Internal Medicine [address] [address] Colon, [place] 09/27/2025 Telephone Internal Medicine [address] [address] Colon, [place] 09/27/2025 [place] [facility] [address] [address] Colon, [place] 09/27/2025 Telephone Internal [address] [address] Colon, [place] 09/22/2025 10:30 AM EDT Office Visit Internal [address] [address] Elvai Astudillo PA Primary hypertension (Primary Dx); Rheumatoid arthritis, involving unspecified site, unspecified whether rheumatoid factor present ([facility] V24, [facility] V28) 09/19/2025 Telephone Internal Medicine [address] [address] Elvia Astudillo PA 09/16/2025 Telephone Internal Medicine [address] [address] Elvia Astudillo PA 09/14/2025 10:30 AM EDT Office Visit Internal [address] [address] Ben Wheatley MD Hospital discharge follow-up (Primary Dx); Cerebral brain hemorrhage ([facility] V24, [facility] V28); Primary hypertension 09/14/2025 Telephone Internal Medicine [facility] 175 [facility] 200 [place] [phone] Elvia Astudillo PA 09/13/2025 Telephone Internal [facility] 175 [facility] 200 [place] [phone] Elvia Astudillo PA 09/04/2025 Results Follow-Up [address] [place] [phone] Elvia Astudillo PA 09/02/2025 9:30 AM EDT Office Visit [facility] 175 [facility] 200 [place] [phone] Elvia Astudillo PA Type 2 diabetes mellitus with diabetic microalbuminuria, without long-term current use of insulin ([facility] V24, [facility] V28) (Primary Dx); Primary hypertension; Pure hypercholesterolemia ; Rheumatoid arthritis, involving unspecified site, unspecified whether rheumatoid factor present ([facility] V24, [facility] V28) 09/02/2025 Telephone Internal Medicine [facility] 175 [facility] 200 [place] [phone] Elvia Astudillo PA 07/20/2025 Telephone Gastroenterology - [address] [place] [address] 299 [facility] [address] [place] [address] Aleisha Hutchins MD from Last [...] patch and cataract - issues due to Khushbus - Dr. Mendenhall COLONOSCOPY W/ BIOPSIES 04/05/2003 Dr. 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 DX:Wegen ers granulomatosis Crohn's disease ([facility] V24 , [facility] V28) 07/03/2018 DX:Crohn's disease ([facility]) GERD (gastroesophageal reflux disease) 11/07/2017 DX:GERD (gastroesophageal reflux disease) Raynaud's disease DX:Raynaud's d isease 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 DM type 2 (diabetes mellitus , type 2) ([facility] V24, [facility] V28) 07/03/2018 DX:DM type 2 (diabetes papa itus, type 2) ([facility]) HTN (hypertension) DX:HTN (hyper tension) Microalbuminuria DX:Microalbumin [...] AM EST Office Visit Internal Medicine - [place] 175 [facility] 200 [place] [phone] Elvia Astudillo PA [address] [place] [address] 12/09/2025 9:40 AM EST Office Visit Gastroenterology - 299 [facility] 299 [facility] [address] [place] [phone] Aleisha Hutchins MD [address] [address] 03/10/2026 9:30 AM EDT Office Visit Internal Medicine - [place] 175 [facility] 200 [place] [phone] Elvia Astudillo PA [address] [place] [address] Health Maintenance Due Date Last Done Comments [...] current use of insulin ([facility] V24, [facility] V28) Primary hypertension HEMOGLOBIN A1C Routine 09/02/2025 10:07 AM EDT Type 2 diabetes mellitus with diabetic microalbuminuria, without long-term current use of insulin ([facility] V24, [facility] V28) HM URINE ALBUMIN CREATININE RATIO Routine 06/08/2024 LIPID PANEL Routine 07/20/2020 EXTERNAL COLONOSCOPY REPORT Routine 04/05/2003 8:55 AM EDT from Last 3 Months or Most Recently Relevant to Health Maintenance Results * Hemoglobin A1c (09/02/2025 10:07 AM EDT) Hemoglobin A1C 6.1 <6.5 % LAB CHEMISTRY METHOD 09/02/2025 8:[address] [facility] Mean Bld Glu Estim. 128 mg/dL LAB CHEMISTRY METHOD 09/02/2025 8:[address] [facility] Blood Venous blood specimen / Unknown Venipuncture / Unknown 09/02/2025 10:07 AM EDT 09/02/2025 10:07 AM EDT Elvia ANDERSON LAB BLOOD ORDERABLES Fin al Result [facility] [address] [place] [address], * (ABNORMAL) Comprehensive metabolic panel (09/02/2025 10:07 AM EDT) Sodium 133 133 - 145 mmol/L LAB CHEMISTRY METHOD 09/02/2025 4:[address] [facility] Potassium 4.6 3.5 - 5.5 mmol/L LAB CHEMISTRY METHOD 09/02/2025 4:[address] [facility] Chloride 93(L) 96 - 110 mmol/L LAB CHEMISTRY METHOD 09/02/2025 4:22 PM [facility] CO2 31 21 - 32 mmol/L LAB CHEMISTRY METHOD 09/02/2025 4:22 PM [facility] Anion Gap 9 3 - 11 LAB CHEMISTRY METHOD 09/02/2025 4:22 PM [facility] Glucose 125(H) 70 - 100 mg/dL LAB CHEMISTRY METHOD 09/02/2025 4:22 PM [facility] BUN 10 5 - 25 mg/dL LAB CHEMISTRY METHOD 09/02/2025 4:22 PM [facility] Creatinine 0.55 0.50 - 1.10 mg/dL LAB CHEMISTRY METHOD 09/02/2025 4:22 PM [facility] eGFR 99 >=60 mL/min/1. 73m2 LAB CHEMISTRY METHOD 09/02/2025 4:22 PM [facility] Comment:Calculation based on the Chronic Kidney Disease Epidemiology Collaboration (CKD-EPI) equation refit without adjustment for race. BUN/Creatinine Ratio 18.2 LAB CHEMISTRY METHOD 09/02/2025 4:22 PM [facility] Calcium 9.8 8.5 - 10.5 mg/dL LAB CHEMISTRY METHOD 09/02/2025 4:22 PM [facility] AST (SGOT) 14 10 - 42 unit/L LAB CHEMISTRY METHOD 09/02/2025 4:22 PM [facility] ALT (SGPT) 22 10 - 60 unit/L LAB CHEMISTRY METHOD 09/02/2025 4:22 PM [facility] Alkaline Phosphatase 42 42 - 121 unit/L LAB CHEMISTRY METHOD 09/02/2025 4:22 PM [facility] Total Protein 6.3 6.0 - 8.0 g/dL LAB CHEMISTRY METHOD 09/02/2025 4:22 PM [facility] Albumin 3.7 3.2 - 5.0 g/dL LAB CHEMISTRY METHOD 09/02/2025 4:[address] [facility] Total Bilirubin 0.3 0.0 - 1.4 mg/dL LAB CHEMISTRY METHOD 09/02/2025 4:[address] [facility] Blood Venous blood specimen / Unknown Venipuncture / Unknown 09/02/2025 10:07 AM EDT 09/02/2025 10:07 AM EDT Elvia ANDERSON LAB BLOOD ORDERABLES Fin al Result [facility] [address] [place] [address], * HM Urine Albumin Creatinine Ratio (06/08/2024) [...] Recently Relevant to Health Maintenance Insurance MEDICARE [facility] Care Teams Crime Scene Analyst Relationship Specialty Start Date End Date Elvia Astudillo PA 175 [facility] 200 [place] [address] PCP - General Internal Medicine 06/26/20
--- OUTSIDE RECORDS SUMMARY | 2025-10-05 10:33 | XMS_ITS | Encounter Summary ---
Author Organization [facility] Address [address] [place] [address] Care Team Providers Care Security Control Center Operator Name Role Phone Elvia Astudillo Primary Care Provider + Reason for Visit * Reason Onset Date Comments Request For Order(s) 09/27/2025 [facility] Order # [id number] Encounter Details Date Type Department Care Team (Late st Contact Info) Description 09/27/2025 Telephone Internal Medicine - [place] 175 [facility] [address] [place] [address] Carine Gomez MA Social History [...] EDT Scanned into chart and faxed to [facility] [phone] * Carine Gomez MA - 09/27/2025 8:22 AM EDT [facility] Order # [id number] Please sign & documented in this encounter Plan of Treatment Upcoming Encounters Date Type Department Care Team (Late st Contact Info) Description 10/19/2025 9:45 AM EST Office Visit Internal Medicine - [place] 175 [facility] [address] [place] [address] Elvia Astudillo PA 230 [place] [address] 12/09/2025 9:40 AM EST Office Visit Gastroenterology - [address] [place] [address] [facility] [address] [place] [address] Aleisha Hutchins MD 299 [facility] [address] [place] [address] 03/10/2026 9:30 AM EDT Office Visit Internal Medicine [facility] 175 [facility] 200 [place] [phone] Elvia Astudillo PA 230 [place] [address] documented as of this encounter Visit Diagnoses Not on filedocumented in this encounter Care Teams Security Control Center Operator Relationship Specialty Start Date End Date Elvia Astudillo PA 175 [facility] 200 [place] [address] PCP - General Internal Medicine 06/26/20 documented as of this encounter
--- OUTSIDE RECORDS SUMMARY | 2025-10-05 10:33 | XMS_ITS | Encounter Summary ---
Author Organization [facility] Address [address] [place] [address] Care Team Providers Care Cold [place] Supervisor Name Role Phone Elvia Astudillo Primary Care Provider + Reason for Visit * Reason Onset Date Comments Request For Order(s) 09/27/2025 [facility] Cert 09/13/25-11/11/25 Plan Of Care Encounter Details Date Type Department Care Team (Late st Contact Info) Description 09/27/2025 Telephone Internal Medicine - [place] 175 [facility] [address] [place] [address] Carine Gomez MA Social History Tobacco Use [...] EDT Scanned into chart and faxed to [facility] [phone] * Carine Gomez MA - 09/27/2025 10:39 AM EDT [facility] Cert 09/13/25-11/11/25 Plan Of Care Please sign & documented in this encounter Plan of Treatment Upcoming Encounters Date Type Department Care Team (Late st Contact Info) Description 10/19/2025 9:45 AM EST Office Visit Internal Medicine - [place] [address] [place] [address] Elvia Astudillo PA 230 [facility] [place] [address] 12/09/2025 9:40 AM EST Office Visit Gastroenterology - [address] [place] [address] [facility] [address] [place] [address] Aleisha Hutchins MD 299 [facility] [address] [place] [address] 03/10/2026 9:30 AM EDT Office Visit Internal Medicine - [place] [address] [facility] [address] [place] [address] Elvia Astudillo PA 230 [place] [address] documented as of this encounter Visit Diagnoses Not on filedocumented in this encounter Care Teams Cold [place] Supervisor Relationship Specialty Start Date End Date Elvia Astudillo PA 175 [facility] 200 [place] [address] PCP - General Internal Medicine 06/26/20 documented as of this encounter
--- OUTSIDE RECORDS SUMMARY | 2025-10-05 10:33 | XMS_ITS | Encounter Summary ---
Author Organization [facility] Address [address] [place] [address] Care Team Providers Care Environmental Adviser Name Role Phone Elvia Astudillo Primary Care Provider + Reason for Visit * Reason Onset Date Comments Request For Order(s) 09/27/2025 [facility] Order # [id number] Encounter Details Date Type Department Care Team (Late st Contact Info) Description 09/27/2025 Telephone Internal Medicine - [place] 175 [facility] [address] [place] [address] Carine Gomez MA Social History [...] to [facility] [place] [phone] * Carine Gomez MA - 09/27/2025 8:43 AM EDT [facility] [place] Order # [id number] Please sign & documented in this encounter Plan of Treatment Upcoming Encounters Date Type Department Care Team (Late st Contact Info) Description 10/19/2025 9:45 AM EST Office Visit Internal Medicine - [place] 175 [facility] [address] [place] [phone] Elvia Astudillo PA 230 [place] [address] 12/09/2025 9:40 AM EST Office Visit Gastroenterology - [address] [place] 299 [facility] [address] [place] [address] Aleisha Hutchins MD [address] [facility] [address] [place] [address] 03/10/2026 9:30 AM EDT Office Visit Internal Medicine [facility] 175 [facility] 200 [place] [phone] Elvia Astudillo PA [address] [place] [address] documented as of this encounter Visit Diagnoses Not on filedocumented in this encounter Care Teams Environmental Adviser Relationship Specialty Start Date End Date Elvia Astudillo PA 175 [facility] [address] [place] [address] PCP - General Internal Medicine 06/26/20 documented as of this encounter
--- OUTSIDE RECORDS SUMMARY | 2025-10-05 10:33 | XMS_ITS | Encounter Summary ---
Author Organization [facility] Address [address] [place] [address] Care Team Providers Care Documentation Supervisor Name Role Phone Elvia Astudillo Primary Care Provider + Reason for Visit * Reason Onset Date Comments Request For Order(s) 10/04/2025 [facility] Order # [id number] Encounter Details Date Type Department Care Team (Late Contact Info) Description 10/04/2025 Telephone Internal Medicine [facility] 175 [facility] [address] [place] [address] Carine Gomez MA Social History Tobacco Use [...] Notes * Carine Gomez MA - 10/04/2025 1:11 PM EST [facility] Order # [id number] Please sign & documented in this encounter Plan of Treatment Upcoming Encounters Date Type Department Care Team (Late Contact Info) Description 10/19/2025 9:45 AM EST Office Visit Internal Medicine - [place] 175 [facility] 200 [place] [address] Elvia Astudillo PA 230 [place] [address] 12/09/2025 9:40 AM EST Office Visit Gastroenterology - 299 [place] 299 [facility] [address] [place] [address] Aleisha Hutchins MD [address] [address] 03/10/2026 9:30 AM EDT Office Visit Internal Medicine [facility] 175 [facility] [address] [place] [phone] Elvia Astudillo PA [address] [place] [address] documented as of this encounter Visit Diagnoses Not on filedocumented in this encounter Care Teams Documentation Supervisor Relationship Specialty Start Date End Date Elvia Astudillo PA [address] [address] PCP - General Internal Medicine 06/26/20 documented as of this encounter
--- OUTSIDE RECORDS SUMMARY | 2025-10-05 10:33 | XMS_ITS | Encounter Summary ---
Author Organization [facility] Address [address] [place] [address] Care Team Providers Care Box Office Clerk Name Role Phone Elvia Astudillo Primary Care Provider + Reason for Visit * Reason Onset Date Comments Request For Order(s) 09/27/2025 [facility] Order # [id number] Encounter Details Date Type Department Care Team (Late st Contact Info) Description 09/27/2025 Telephone Internal Medicine - [place] 175 [facility] [address] [place] [address] Carine Gomez MA Social History [...] faxed to [facility] [phone] * Carine Gomez MA - 09/27/2025 9:[address] [facility] Order # [id number] Please sign & documented in this encounter Plan of Treatment Upcoming Encounters Date Type Department Care Team (Late st Contact Info) Description 10/19/2025 9:45 AM EST Office Visit Internal Medicine - [place] 175 [facility] [address] [place] [phone] Elvia Astudillo PA 230 [place] [address] 12/09/2025 9:40 AM EST Office Visit Gastroenterology - 299 [place] 299 [facility] [address] [place] [address] Aleisha Hutchins MD 299 [facility] 419 [place] [address] 03/10/2026 9:30 AM EDT Office Visit Internal Medicine [facility] 175 [facility] 200 [place] [phone] Elvia Astudillo PA 230 [place] [address] documented as of this encounter Visit Diagnoses Not on filedocumented in this encounter Care Teams Box Office Clerk Relationship Specialty Start Date End Date Elvia Astudillo PA 175 [facility] 200 [place] [address] PCP - General Internal Medicine 06/26/20 documented as of this encounter
== END 2025-10-05 09:53 | disposition home or self-care (01) ==
LOC: HO.HKAS 09:27
PROVIDERS: PCP Internal Medicine; Visit Provider Internal Medicine Hypertension Specialist
DX: I10 Essential (primary) hypertension (principal)
CPT/HCPCS: 99214

== ENCOUNTER → 2025-10-05 09:27 | Outpatient (BNVA) | payer MEDICARE, SELFPAY | PROVIDERS: PCP Internal Medicine; Visit Provider Internal Medicine Hypertension Specialist | DX: I10 Essential (primary) hypertension (principal); Z79.84 Long term (current) use of oral hypoglycemic drugs; E11.43 Type 2 diabetes mellitus with diabetic autonomic (poly)neuropathy; E87.1 Hypo-osmolality and hyponatremia; M31.30 Wegener's granulomatosis without renal involvement | CPT/HCPCS: 99212 ==

== ENCOUNTER 2025-10-13 11:14 | Outpatient (REF) | payer MEDICARE, SELFPAY ==
--- OUTSIDE RECORDS SUMMARY | 2025-10-12 23:59 | XMS_ITS | Continuity of Care Document ---
Author Organization [facility] ter Address [address] [place] [address]- Care Team Providers Care Wax Pattern Assembler Name Role Phone Elvia Lopez Primary [facility] Phys[id number] Date(s): 09/12/25 - 10/12/[address] [address]- Attending Physician: Not on Staff, Attending MD Admitting Physician: Not on Staff, Admitting MD Referring Physician: Not on Staff, Referring MD Encounter Type: Pre-Outpt Allergies, Adverse Reactions, Alerts Substance Criticality Severity Reaction Reaction Severity Status clindamycin Stomach cramps Act brad methotrexate hairloss Active lisinopril Fit of coughing Act brad cefdinir gi upset Active Ceftin gi upset Active Actonel gerd Active Imuran vomit Active Fosamax GERD Active Bactrim rash Active Humira rash Active Boniva phlebitis Active Simponi GI Active levoFLOXacin gi upset Active [facility] COVID-19 Vaccine PF rash/hives Active Medications balsalazide 750 mg oral capsule 1 capsule = 750 mg, By Mouth, 3 times a day, 0 Refills, Maintenance, 11/18/23 8:14:00 AM EST, Partial fill upon patient request if the prescription is for a schedule II opioid drug. Start Date: 11/18/23 Status: Ordered Medication Dispense Status: Completed Total Allowed Fills: 1 Fills Dispensed: 0 doxycycline monohydrate 100 mg oral capsule 1 capsule = 100 mg, By Mouth, 2 times a day, 0 Refills, Maintenance, 11/18/23 8:12:00 AM EST, Partial fill upon patient request if the prescription is for a schedule II opioid drug. Start Date: 11/18/23 Status: Ordered Medication Dispense Status: Completed Total Allowed Fills: 1 Fills Dispensed: 0 famotidine 40 mg oral tablet 1 tablet = 40 mg, By Mouth, Daily at bedtime, 0 Refills, Maintenance, 11/18/23 8:11:00 AM EST, Partial fill upon patient request if the prescription is for a schedule II opioid drug. Start Date: 11/18/23 Status: Ordered Medication Dispense Status: Completed Total Allowed Fills: 1 Fills Dispensed: 0 gabapentin 600 mg oral tablet 1 tablet = 600 mg, By Mouth, 3 times a day, # 270 tablet, 0 Refills, Maintenance, 11/18/23 8:18:00 AM EST, Tablet, Partial fill upon patient request if the prescription is for a schedule II opioid drug. Start Date: 11/18/23 Status: Ordered Medication Dispense Status: Completed Quantity: 270.0 Unit: tablet Total Allowed Fills: 1 Fills Dispensed: 0 labetalol 100 mg oral tablet = 100 mg, By Mouth, Every 12 hours, # 60 tablet, 0 Refills, Maintenance, 09/12/25 12:45:00 PM EDT, Tablet, [facility] 3, Partial fill upon patient request if the prescription is for a schedule II opioid drug., 158, cm, 09/08/25 10:42:00 EDT, Height, 38.6, kg, 09/08/25 10:42:00 EDT, Dry Weight Start Date: 09/12/25 Status: Ordered Medication Dispense Status: Completed Quantity: 60.0 Unit: tablet Total Allowed Fills: 1 Fills Dispensed: 0 metFORMIN 500 mg oral tablet, extended release 1 tablet = 500 mg, By Mouth, 4 times a day, # 90 tablet, 0 Refills, Maintenance, 04/02/24 10:44:00 AMEDT, ER Tablet, Partial fill upon patient request if the prescription is for a schedule II opioid drug. Start Date: 04/02/24 Status: Ordered Medication Dispense Status: Completed Quantity: 90.0 Unit: tablet Total Allowed Fills: 1 Fills Dispensed: 0 MiraLax oral powder for reconstitution = 17 Gm, By Mouth, Daily, # 238 Gm, 0 Refills, Maintenance, 09/12/25 12:46:00 PM EDT, REC Powder, [facility], Partial fill upon patient request if the prescription is for a schedule II opioid drug., 17 Gm By Mouth Daily, 158, cm, 09/08/25 10:42:00 EDT, Height, 38.6, kg, 09/08/25 10:42:00 EDT, Dry Weight Start Date: 09/12/25 Status: Ordered Medication Dispense Status: Completed Quantity: 238.0 Unit: g Total Allowed Fills: 1 Fills Dispensed: 0 Misc Rx See Instructions, Refills 0, Maintenance, Iron 27 mg, 1 tablet by mouth daily, 04/02/24 10:51:00 AM EDT, Supply Start Date: 04/02/24 Status: Ordered Medication Dispense Status: Completed Total Allowed Fills: 1 Fills Dispensed: 0 mycophenolate mofetil 500 mg oral tablet 3 tablet = 1,500 mg, By Mouth, 2 times a day, # 540 tablet, 0 Refills, Maintenance, 04/02/24 10:49:00AM EDT, Tablet, Partial fill upon patient request if the prescription is for a schedule II opioid drug. Start Date: 04/02/24 Status: Ordered Medication Dispense Status: Completed Quantity: 540.0 Unit: tablet Total Allowed Fills: 1 Fills Dispensed: 0 NIFEdipine 30 mg oral tablet, extended release 30 mg, By Mouth, Daily, # 30 tablet, Refills 0, Tot. Refills 0, Maintenance, 09/12/25 12:47:00 PM EDT, Route to Pharmacy Electronically, [facility], Partial fill upon patient request ifthe prescription is for a schedule II opioid drug., 158, cm, 09/08/25 10:42:00 EDT, Height, 38.6, kg, 09/08/25 10:42:00 EDT, Dry Weight Start Date: 09/12/25 Status: Ordered Medication Dispense Status: Completed Quantity: 30.0 Unit: tablet Total Allowed Fills: 1 Fills Dispensed: 0 predniSONE 1 mg oral tablet 4 tablet = 4 mg, By Mouth, Daily in AM, 0 Refills, Maintenance, 11/18/23 8:11:00 AM EST, Partial fill upon patient request if the prescription is for a schedule II opioid drug. Start Date: 11/18/23 Status: Ordered Medication Dispense Status: Completed Total Allowed Fills: 1 Fills Dispensed: 0 Restasis 0.05% ophthalmic emulsion 1 drops, Eyes, Both, 2 times a day, 0 Refills, Maintenance, 11/18/23 8:14:00 AM EST, Partial fill upon patient request if the prescription is for a schedule II opioid drug. Start Date: 11/18/23 Status: Ordered Medication Dispense Status: Completed Total Allowed Fills: 1 Fills Dispensed: 0 Restasis 0.05% ophthalmic emulsion 1 drops, Every 12 hours, 0 Refills, Maintenance, 09/08/25 9:39:00 PM EDT, Partial fill upon patient request if the prescription is for a schedule II opioid drug. Start Date: 09/08/25 Status: Ordered Medication Dispense Status: Completed Total Allowed Fills: 1 Fills Dispensed: 0 timolol maleate 0.5% ophthalmic solution 1 drops, Eye, Left, 2 times a day, # 10 mL, 0 Refills, Maintenance, 11/18/23 8:13:00 AM EST, Solution, Partial fill upon patient request if the prescription is for a schedule II opioid drug. Start Date: 11/18/23 Status: Ordered Medication Dispense Status: Completed Quantity: 10.0 Unit: mL Total Allowed Fills: 1 Fills Dispensed: 0 valacyclovir 1 gm oral tablet 1 tablet = 1 Gm, By Mouth, Daily, 0 Refills, Maintenance, 11/18/23 8:15:00 AM EST, Partial fill upon patient request if the prescription is for a schedule II opioid drug. Start Date: 11/18/23 Status: Ordered Medication Dispense Status: Completed Total Allowed Fills: 1 Fills Dispensed: 0 valsartan 40 mg oral tablet 40 mg, By Mouth, Daily, # 30 tablet, Refills 0, Tot. 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 Rheumatoid arthritis Confirmed Active Underweight Confirmed Active Siddharth granulomatosis Confirmed Active Social History Social History Type Response Smoking Status Never (less than 100 in lifetime) entered on: 11/18/23 Sex Sex Representation Female (finding) Patient Care team information Care Team Personnel Name: Lauren Talavera RN Position: S RN Member Role: Primary Care Nurse Name: Ismael Erickson RN Position: S RN Member Role: Primary Care Nurse Name: Robyn Rios RN Position: S RN Member Role: Primary Care Nurse Name: Gato Lobato MD Position: [facility] [employer] DEVELOPER MD Member Role: [employer] DEVELOPER Physician Address: [address] [place] [address] Telecom: Name: Perla Yi RN Position: S RN Member Role: Primary Care Nurse Name: Gerald Martinez RN Position: S RN Member Role: Primary Care Nurse Name: Elvia Lopez Position: [facility] Outreach Member Role: PCP Address: [address] [place] [address] Telecom: Name: Ivy Riley RN Position: [facility] Onco RN Member Role: Primary Care Nurse Name: Lamonte Lucia RN Position: [facility] RN Member Role: Primary Care Nurse Name: Judd Boland Position: [facility] Outreach Member Role: [employer] Consulting Physician Care Team Related Persons Name: YUMIKO SALMON Insurance Providers Guarantor name: FAUSTO Health Plan Information #: 1 Payer: MEDICARE B Payer Identifier: NA Member Number: [id number] Group Number: FAUSTO Subscriber Identifier: FAUSTO Relationship to Subscriber: self Coverage Type: NA Coverage Verification Date: NA Telecom: NA Address: Health Plan Information #: 2 Payer: MEDEX SECONDARY ONLY Payer Identifier: FAUSTO Member Number: [id number] Group Number: NA Subscriber Identifier: NA Relationship to Subscriber: self Coverage Type: Medicare Other Coverage Verification Date: NA Telecom: NA Address: NA
--- OUTSIDE RECORDS SUMMARY | 2025-10-13 14:20 | XMS_ITS | Encounter Summary ---
Author Organization [facility] Address [address] [place] [address] Care Team Providers Care Blast Furnace Supervisor Name Role Phone Elvia Astudillo Primary Care Provider + Encounter Details Date Type Department Care Team (Late Contact Info) Description 09/04/2025 Results Follow-Up Internal Medicine [facility] [address] [facility] [address] [place] [address] Elvia Astudillo PA [address] [place] [address] Social History Tobacco Use Types Packs/Day Years [...] Department Care Team (Late Contact Info) Description 11/28/2025 9:00 AM EST Office Visit Internal Medicine [facility] [address] [facility] [address] [place] [phone] Elvia Astudillo PA [address] [place] [address] 12/09/2025 9:40 AM EST Office Visit Gastroenterology - [facility] [address] [facility] [address] [place] [phone] Aleisha Hutchins MD 299 [facility] [address] [place] [address] 03/10/2026 9:30 AM EDT Office Visit Internal Medicine - [place] [address] [facility] [address] [place] [phone] Elvia Astudillo PA [address] [place] [address] documented as of this encounter Visit Diagnoses Not on filedocumented in this encounter Care Teams Blast Furnace Supervisor Relationship Specialty Start Date End Date Elvia Astudillo PA [address] [facility] [address] [place] [address] PCP - General Internal Medicine 06/26/20 documented as of this encounter
--- OUTSIDE RECORDS SUMMARY | 2025-10-13 14:20 | XMS_ITS | Encounter Summary ---
Author Organization [facility] Address [address] [place] [address] Care Team Providers Care Can Crimper Name Role Phone Elvia Astudillo Primary Care Provider + Reason for Visit * Reason Onset Date Comments Request For Order(s) 09/30/2025 [facility] Order # [id number] Encounter Details Date Type Department Care Team (Late st Contact Info) Description 09/30/2025 Telephone Internal Medicine - [place] [address] [facility] [address] [place] [address] Carine Gomez MA Social History [...] EST Scanned into chart and faxed to [facility] [phone] * Carine Gomez MA - 09/30/2025 7:55 AM EDT [facility] Order # [id number] Please sign & documented in this encounter Plan of Treatment Upcoming Encounters Date Type Department Care Team (Late st Contact Info) Description 11/28/2025 9:00 AM EST Office Visit Internal Medicine - [place] [address] [facility] [address] [facility] [address] [place] [phone] Elvia Astudillo PA [address] [facility] [place] [address] 12/09/2025 9:40 AM EST Office Visit Gastroenterology - [address] [place] [address] [place] [phone] Aleisha Hutchins MD [address] [facility] [address] [place] [address] 03/10/2026 9:30 AM EDT Office Visit Internal Medicine [facility] [address] [place] [phone] Elvia Astudillo PA [address] [place] [address] documented as of this encounter Visit Diagnoses Not on filedocumented in this encounter Care Teams Can Crimper Relationship Specialty Start Date End Date Elvia Astudillo PA [address] [facility] [address] [place] [address] PCP - General Internal Medicine 06/26/20 documented as of this encounter
--- OUTSIDE RECORDS SUMMARY | 2025-10-13 14:20 | XMS_ITS | Clinical Summary ---
Author Organization 175 [facility] Address 175 [place] [address] Phone Care Team Providers Care Stained Glass Painter Name Role Phone Elvia Astudillo Primary Care [...] , without long-term current use of insulin ([facility] V24, [facility] V28) Take 2 tablets (1,000 mg total) [...] unspecified site, unspecified whether rheumatoid factor present ([facility] V24, [facility] V28) Take 1 tablet by mouth at [...] sinusitis Overview (10/15/2024): DX:Chronic sinusitis Crohn's disease ([facility] V24, [facility] V28) Overview (10/15/2024): DX:Crohn's disease (HCC) DM type 2 (diabetes mellitus , type 2) ([facility] V24, [facility] V28) Overview (10/15/2024): DX:DM type 2 (diabetes mellitus, type 2) ([facility]) GERD (gastroesophageal reflux disease) Overview (10/15/2024): DX:GERD (gastroesophageal reflux disease) Assessment & Plan (03/18/2025 11:34 AM EDT): 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 Overview (10/15/2024): 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 HTN (hypertension) Overview (10/15/2024): DX:HTN (hypertension) Hyperlipidemia Overview (10/15/2024): DX:Hyperlipidemia; COMMENT: declines medication Insomnia Overview (10/15/2024): DX:Insomnia Microalbuminuria Overview (10/15/2024): DX:Microalbuminuria Raynaud's disease Overview (10/15/2024): DX:Raynaud's disease Rheumatoid arthritis ([facility] V24, [facility] V28) Overview (10/15/2024): DX:Rheumatoid arthritis (HCC) 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 ([facility] V24, [facility] V28) Overview (10/15/2024): DX:Wegeners granulomatosis Encounters Date Type Department Care Team Description 10/10/2025 Telephone Internal Medicine [address] [place] [address] Carine Gomez [place] 10/04/2025 Telephone Internal Medicine - [place] [address] [address] [place], [place] 09/30/2025 Telephone Internal Medicine [facility] [address] [address] [place], [place], [place] 09/27/2025 Telephone Internal Medicine [facility] [address] [address] [place], [place], [place] 09/27/2025 Telephone Internal Medicine [facility] [address] [address] [place], [place], [place] 09/27/2025 Telephone Internal Medicine [address] [address] [place], [place] 09/27/2025 Telephone Internal Medicine [address] [address] [place], [place] 09/27/2025 Telephone Internal Medicine [address] [address] [place], [place] 09/27/2025 Telephone Internal Medicine [address] [address] [place], [place], [place] 09/22/2025 10:30 AM EDT Office Visit Internal Medicine [address] [address] Elvia Astudillo PA Primary hypertension (Primary Dx); Rheumatoid arthritis, involving unspecified site, unspecified whether rheumatoid factor present (CMS/HCC V24, CMS/HCC V28) 09/19/2025 Telephone Internal Medicine [address] [address] Elvia Astudillo PA 09/16/2025 Telephone Internal Medicine [address] [address] Elvia Astudillo PA 09/14/2025 10:30 AM EDT Office Visit Internal Medicine [facility] 175 [facility] 200 [place] [phone] Ben Wheatley MD Hospital discharge follow-up (Primary Dx); Cerebral brain hemorrhage ([facility] [place]24, [facility] V28); Primary hypertension 09/14/2025 Telephone Internal Medicine [facility] 175 [facility] 200 [place] [address] Elvia Astudillo PA 09/13/2025 Telephone Internal Medicine [address] [place] [phone] Elvia Astudillo PA 09/04/2025 Results Follow-Up Internal [address] 200 [place] [phone] Elvia Astudillo PA 09/02/2025 9:30 AM EDT Office Visit Internal [facility] 175 [facility] 200 [place] [phone] Elvia Astudillo PA Type 2 diabetes mellitus with diabetic microalbuminuria, without long-term current use of insulin ([facility] V24, [facility] V28) (Primary Dx); Primary hypertension; Pure hypercholesterolemia ; Rheumatoid arthritis, involving unspecified site, unspecified whether rheumatoid factor present ([facility] V24, [facility] V28) 09/02/2025 Telephone Internal Medicine [facility] 175 [facility] 200 [place] [address] Elvia Astudillo PA 07/20/2025 Telephone Gastroenterology - [address] [place] [phone] Aleisha Hutchins MD from Last 3 Months [...] declines medication Insomnia 07/15/2017 DX:Insomnia Rheumatoid arthritis ([facility] V[facility], [facility] V28) 07/03/2018 DX:Rheumatoid arthritis ([facility] ) Wegeners granulomatosis 07/03/2018 DX:Wegen ers granulomatosis Crohn's disease ([facility] V24 , [facility] V28) 07/03/2018 DX:Crohn's disease ([facility]) GERD (gastroesophageal reflux disease) 11/07/2017 DX:GERD (gastroesophageal reflux disease) Raynaud's disease DX:Raynaud's d isease 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 DM type 2 (diabetes mellitus , type 2) ([facility] V24, [facility] V28) 07/03/2018 DX:DM type 2 (diabetes papa itus, type 2) ([facility]) HTN (hypertension) DX:HTN (hyper tension) Microalbuminuria DX:Microalbumin [...] AM EST Office Visit Internal Medicine - [place] 175 [facility] 200 [place] [address] Elvia Astudillo PA [address] [place] [address] 12/09/2025 9:40 AM EST Office Visit Gastroenterology - 299 [facility] 299 [facility] [address] [place] [address] Aleisha Hutchins MD [address] [address] 03/10/2026 9:30 AM EDT Office Visit Internal Medicine [facility] 175 [facility] 200 [place] [address] Elvia Astudillo PA [address] [place] [address] Health Maintenance Due Date Last Done Comments [...] Procedure Name Priority Date/Time Associated Diagnosis Comments EXTERNAL CLINICAL LAB 09/30/2025 EXTERNAL CLINICAL LAB 09/30/2025 COMPREHENSIVE METABOLIC PANEL Routine 09/02/2025 10:07 AM EDT Type 2 diabetes mellitus with diabetic microalbuminuria, without long-term current use of insulin ([facility] V24, [facility] V28) Primary hypertension HEMOGLOBIN A1C Routine 09/02/2025 10:07 AM EDT Type 2 diabetes mellitus with diabetic microalbuminuria, without long-term current use of insulin ([facility] V24, [facility] V28) HM URINE ALBUMIN CREATININE RATIO Routine 06/08/2024 LIPID PANEL Routine 07/20/2020 EXTERNAL COLONOSCOPY REPORT Routine 04/05/2003 8:55 AM EDT from Last 3 Months or Most Recently Relevant to Health Maintenance Results * External clinical lab (09/30/2025) Only the most recent of2 resultswithin the time period is included. Provider [facility] LAB BLOOD ORDERABLES Fin al Result * Hemoglobin A1c (09/02/2025 10:07 AM EDT) Hemoglobin A1C 6.1 <6.5 % LAB CHEMISTRY METHOD 09/02/2025 8:24 PM EDT [facility] Mean Bld Glu Estim. 128 mg/dL LAB CHEMISTRY METHOD 09/02/2025 8:24 PM EDT [facility] Blood Venous blood specimen / Unknown Venipuncture / Unknown 09/02/2025 10:07 AM EDT 09/02/2025 10:07 AM EDT Elvia ANDERSON LAB BLOOD ORDERABLES Fin al Result [facility] [address] [place] [address], [place] [phone] * (ABNORMAL) Comprehensive metabolic panel (09/02/2025 10:07 AM EDT) Sodium 133 133 - 145 mmol/L LAB CHEMISTRY METHOD 09/02/2025 4:[address] [facility] Potassium 4.6 3.5 - 5.5 mmol/L LAB CHEMISTRY METHOD 09/02/2025 4:[address] [facility] Chloride 93(L) 96 - 110 mmol/L LAB CHEMISTRY METHOD 09/02/2025 4:[address] [facility] CO2 31 21 - 32 mmol/L LAB CHEMISTRY METHOD 09/02/2025 4:[address] [facility] Anion Gap 9 3 - 11 LAB CHEMISTRY METHOD 09/02/2025 4:[address] [facility] Glucose 125(H) 70 - 100 mg/dL LAB CHEMISTRY METHOD 09/02/2025 4:[address] [facility] BUN 10 5 - 25 mg/dL LAB CHEMISTRY METHOD 09/02/2025 4:[address] [facility] Creatinine 0.55 0.50 - 1.10 mg/dL LAB CHEMISTRY METHOD 09/02/2025 4:[address] [facility] eGFR 99 >=60 mL/min/1. 73m2 LAB CHEMISTRY METHOD 09/02/2025 4:[address] [facility] Comment:Calculation based on the Chronic Kidney Disease Epidemiology Collaboration (CKD-EPI) equation refit without adjustment for race. BUN/Creatinine Ratio 18.2 LAB CHEMISTRY METHOD 09/02/2025 4:[address] [facility] Calcium 9.8 8.5 - 10.5 mg/dL LAB CHEMISTRY METHOD 09/02/2025 4:[address] [facility] AST (SGOT) 14 10 - 42 unit/L LAB CHEMISTRY METHOD 09/02/2025 4:[address] [facility] ALT (SGPT) 22 10 - 60 unit/L LAB CHEMISTRY METHOD 09/02/2025 4:22 PM EDT [facility] Alkaline Phosphatase 42 42 - 121 unit/L LAB CHEMISTRY METHOD 09/02/2025 4:22 PM EDT [facility] Total Protein 6.3 6.0 - 8.0 g/dL LAB CHEMISTRY METHOD 09/02/2025 4:22 PM EDT [facility] Albumin 3.7 3.2 - 5.0 g/dL LAB CHEMISTRY METHOD 09/02/2025 4:22 PM EDT [facility] Total Bilirubin 0.3 0.0 - 1.4 mg/dL LAB CHEMISTRY METHOD 09/02/2025 4:22 PM EDT [facility] Blood Venous blood specimen / Unknown Venipuncture / Unknown 09/02/2025 10:07 AM EDT 09/02/2025 10:07 AM EDT Elvia ANDERSON LAB BLOOD ORDERABLES Fin al Result [facility] [address] [place] [address], * HM Urine Albumin Creatinine Ratio (06/08/2024) Pathologist [facility] Urine Albumin Creatinine Ratio Abstracted Historical Provider [...] Anatomical Region Laterality Modality Endoscopy Historical Provider MD GI~PROCEDURE ORDERABLES F inal Result from Last 3 Months or Most Recently Relevant to Health Maintenance Insurance MEDICARE [facility] Care Teams Stained Glass Painter Relationship Specialty Start Date End Date Elvia Astudillo PA 175 [facility] 200 [place] [address] PCP - General Internal Medicine 06/26/20
--- OUTSIDE RECORDS SUMMARY | 2025-10-13 14:20 | XMS_ITS | Encounter Summary ---
Author Organization [facility] Address [address] [place] [address] Care Team Providers Care Drum Worker Name Role Phone Elvia Astudillo Primary Care Provider + Encounter Details Date Type Department Care Team ([facility] st Contact Info) Description 09/16/2025 Telephone Internal Medicine - [place] 175 [facility] [address] [place] [address] Elvia Astudillo PA [address] [place] [address] Social History Tobacco Use Types Packs/Day Years [...] office and informed him of new appt -[facility] - [phone] at 2:OOPM FYI documented in this encounter Plan of Treatment Upcoming Encounters Date Type Department Care Team (Late st Contact Info) Description 11/28/2025 9:00 AM EST Office Visit Internal Medicine [facility] 175 [facility] [address] [place] [address] Elvia Astudillo PA [address] [place] [address] 12/09/2025 9:40 AM EST Office Visit Gastroenterology - 299 [place] 299 [facility] [address] [place] [address] Aleisha Hutchins MD [address] [address] 03/10/2026 9:30 AM EDT Office Visit Internal Medicine [facility] 175 [facility] 200 [place] [address] Elvia Astudillo PA [address] [place] [address] documented as of this encounter Visit Diagnoses Not on filedocumented in this encounter Care Teams Drum Worker Relationship Specialty Start Date End Date Elvia Astudillo PA [address] [address] PCP - General Internal Medicine 06/26/20 documented as of this encounter
--- OUTSIDE RECORDS SUMMARY | 2025-10-13 14:20 | XMS_ITS | Clinical Summary ---
Author Organization [facility] Address [address] [place] [address] [place], [place] [address] Phone Care Team Providers Care Food Service Manager Name Role Phone Ismael Hutchison MD Primary Care Provider [phone] Social History Tobacco Use Types Packs/Day Years Used Date Smoking Tobacco: Never Assessed Comments Unknown Sex and Gender Information Value Date Recorded Sex Assigned at Not on file Legal Sex Female 5:03 PM EST Gender Identity Not on file Sexual Orientation Not on file Plan of Treatment Not on file Medical Devices Not on file Insurance [facility] POS [facility] POS [facility] POS [facility] H[facility] POS [facility] POS Care Teams Food Service Manager Relationship Specialty Start Date End Date Ismael Hutchison MD PCP - General 08/08/14 Additional Source Comments The information contained in this document represents components of the legal health record. It is not the complete legal health record.[facility]
--- OUTSIDE RECORDS SUMMARY | 2025-10-13 14:20 | XMS_ITS | Data Portability ---
Author Organization [place] [facility] Address [address] [place] [address] Care Team Providers Care Finish Inspector Name Role Phone RICHARD VAUGHN Primary Care [...] Details Recorded Time Abnormal auditory perceptio n 86335221 Active 2013 Abnormal auditory perceptio n, unspecifi ed; Note: Date Diagnosed : 4 11:29 AM (388.40) Not Available [facility] 4 02:51:32 Unilatera l sensorine ural hearing loss with unrestric efe hearing on the contralat eral side Active 2013 Sensorine ural HL, unilatera l; Note: Date Diagnosed : 4 12:08 PM (389.15) Not Available [facility] 4 02:51:30 Patulous left Eustachia n tube [id number] [address]9828 Active 2016 Patulous Eustachia n tube, left ear; Note: Date Diagnosed : 03/05/2017 2:51 PM (H69.02) Not Available [facility] 4 02:51:28 Sensorine ural hearing loss of bilateral ears 521066690 Active 2016 Sensorine ural hearing loss, bilateral ; Note: Date Diagnosed : 03/05/2017 2:06 PM (H90.3) Not Available [facility] 4 02:51:29 Bilateral disorder of Eustachia n tubes 46868011051 69991 Active 2016 Other specified disorders of Eustachia n tube, bilateral ; Note: Date Diagnosed : 03/05/2017 2:51 PM (H69.83) Not Available [facility] 4 02:51:30 Chronic sinusitis 56959012 Active 2020 Other chronic sinusitis ; Note: Date Diagnosed : 09/07/2021 9:38 AM (J32.8) Not Available [facility] 4 02:51:27 Granuloma tosis with polyangii tis 928731362 Active 2020 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; Note: Date Diagnosed : 4 11:29 AM (446.4) ; Start Date : 4 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; Note: Date Diagnosed : 09/07/2021 9:38 AM (M31.30) Not Available [facility] 4 02:51:32 Mass of neck 189114876 Active 2020 Localized swelling, mass and lump, neck; Note: Date Diagnosed : 09/07/2021 9:38 AM (R22.1) Not Available [facility] 4 02:51:28 Neck swelling 982434722 Active 2020 Localized swelling, mass and lump, neck; Note: Date Diagnosed : 09/07/2021 9:38 AM (R22.1) Not Available [facility] 4 02:51:28 Acute sinusitis 05147358 Active 2021 Acute sinusitis , unspecifi ed; Note: Date Diagnosed : 04/04/2022 12:37 PM (J01.90) Not Available [facility] 4 02:51:29 Chronic disease of tonsils AND/OR adenoids 71146442 Active 2022 Calculus, tonsil; Note: Date Diagnosed : 12/30/2022 2:20 PM (J35.8) Not Available [facility] 4 02:51:30 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 - [facility] 4 10:49:44 Tonsillar retention cyst 393521069 Active 2023 ANTON PERSAUD MD [address] [place], [place] [address], [address] , [facility] - [facility] 4 10:49:52 Problem Notes None recorded. Procedures Surgical History Date Name Laterality Status Provider Name and Address Organization Details Recorded Time JMSNasal/Sinus Endoscopy completed ANTON VILLALOBOS MD [address] [place] [address], [place], [address], [facility] - [facility] 09/10/2024 10:49:26 Imaging Results None recorded. Procedure Notes None recorded. Medical Equipment None Reported. Allergies Allergen ID Allergen Name Allergen Category Reaction Reaction Severity Criticality Documentation Date Start Date Code Code System Note Provider Name and Address Organization Details Recorded Time 561091 cefuroxim e axetil medicatio n nausea Not available Not available 04/13/2024 58145 RxNorm React ion: other react ion, upset stoma ch; Not Available [facility] 4 01:11:48 804148 Bactrim medicatio n hives Not available Not available 04/13/2024 28837 9 RxNorm React ion: skin rashe s, hives ;; Not Available [facility] 4 01:11:49 812925 Enbrel medicatio n other Not available Not available 04/13/2024 20347 1 RxNorm React ion: other react ion, Unkno wn; Not Available [facility] 4 01:11:53 Medications Name Sig Start Date Stop Date Status Note LastModified by Organization Details LastModified Time nifedipin e ER 30 mg tablet,ex tended release 24 hr active Not Available Not Available Not Available dicloxaci llin 500 mg capsule active Medicati on ID: [id number] B rand Name: dicloxac illin Se nd [...] mg tablet 02/19 completed Medicati on ID: 75440 Du ration Value: 30 Brand Name: predniso ne Send Method: E-Prescr ibed Sub s Allowed: subs OK Medic ationGen ericName : predniso ne Not Available Not Available Not Available ciproflox acin 500 mg tablet Take 1 tablet twice a day 2021 active Medicati on ID: 762109 D uration Value: 10 Brand Name: ciproflo [...] a day 09/10 completed Medicati on ID: 039006 D uration Value: 7 Prescri bed By Name: PARDEEP Singh nd Name: amoxicil latia Send Method: E-Prescr ibed Sub s Allowed: subs OK Medic ationGen ericName : amoxicil latia Not Available Not Available Not Available prednison e 1 mg tablet active Not Available Not Available Not Available nifedipin e 10 mg capsule 02/19 completed Medicati on ID: 57321 Du ration Value: 90 Brand Name: nifedipi ne Send Method: E-Prescr ibed Sub s Allowed: subs OK Medic ationGen ericName : nifedipi ne Not Available Not Available Not Available doxycycli ne monohydra te 100 mg capsule active Not Available Not Available Not Available hydrocodo ne 7.5 mg-acetam inophen 325 mg tablet 02/19 completed Medicati on ID: 59723 Du ration Value: 5 Brand Name: hydrocod [...] mg tablet 02/19 completed Medicati on ID: 86340 Du ration Value: 30 Brand Name: simvasta tin Send Method: E-Prescr ibed Sub s Allowed: subs OK Medic ationGen ericName : simvasta tin Not Available Not Available Not Available clotrimaz ole-betam ethasone 1 %-0.05 % topical cream active Medicati on ID: 191974 B rand Name: mayariluis enrique zole-bet amethaso ne Send Method: E-Prescr ibed Sub s Allowed: subs OK Medic ationGen ericName : clotrima zole-bet amethaso ne Not Available Not Available Not Available lansopraz ole 30 mg capsule,d elayed release 03/05 completed Medicati on ID: 49369 Du ration Value: 90 Reason: () Brand [...] a day 09/12 completed Medicati on ID: 208195 D uration Value: 10 Prescri bed By [...] 33 gauge 02/19 completed Medicati on ID: 03440 Du ration Value: 90 Brand Name: OneTouch Delica Lancets Send Method: E-Prescr ibed Sub s Allowed: subs OK Medic ationGen ericName : OneTouch Delica Lancets Not Available Not Available Not Available Vitals Date Recorded Body height Body mass index (BMI) Body weight Provider Name and Address Organization Details Last Updated DateTime 09/10/2024 160.02 cm 14.7 kg/m2 17395.17 g Stefan Matos [place] - [facility] 09/10/2024 10:29:29 Social History None recorded. Functional Status None recorded. Mental Status None recorded. Family History Nothing Reported. Medical History No medical history recorded. Gynecological HistoryNo gynecological history recorded. Obstetrics History GPAL:G 0 P 0 0 0 0 Past Encounters Encounter ID Performer Location Encounter Start Date Encounter Closed Date Diagnosis/Indication Diagnosis SNOMED-CT Code Diagnosis ICD10 Code Diagnosis IMO Codes Diagnosis Note [id number] ANTON PERSAUD MD [facility] [address] [address] 09/10/2024 10:21:18 09/10/2024 12:17:37 Granulomatosis with polyangiitis 050091219 M31.30 Chronic rhinitis 2104842 6 J31.0 Tonsillar retention cyst 863432202 J35.8 Health Concerns Section Related Observation LastModified by Organization Detai ls LastModified Time None Recorded Concern Status LastModified by Organization Details LastModified Time None Recorded Advance Directives Directive None Recorded Payers Insurance Date Sequence Insurance Name Policy Number Policy Capps Covered Member ID Capps Member ID Guarantor Name 09/13/2024 2 [facility] (PP[facility] [id number] Ita L Bein [id number] Ita L Bein 09/13/2024 1 MEDICARE B-DE: [employer] Ita L Bein [id number] Ita L Bein Notes Date Note [...] PND and tonsil stones ANTON VILLALOBOS MD [address] [place] [address], [address], [facility] - [facility] 09/10/2024 10:52:35 OBGyn Episode No OBEpisode recorded.
--- OUTSIDE RECORDS SUMMARY | 2025-10-13 14:20 | XMS_ITS | Encounter Summary ---
Author Organization [facility] Address [address] [place] [address] Care Team Providers Care Surgical Scheduler Name Role Phone Elvia Astudillo Primary Care Provider + Reason for Visit * Reason Onset Date Comments Request For Order(s) 10/04/2025 [facility] Order # [id number] Encounter Details Date Type Department Care Team (Late st Contact Info) Description 10/04/2025 Telephone Internal Medicine - [place] [address] [facility] [address] [place] [address] Carine Gomez MA Social History [...] Progress Notes * Carine Gomez MA - 10/07/2025 6:24 AM EST Scanned into chart and faxed to [facility] [phone] * Carine Gomez MA - 10/04/2025 1:11 PM EST [facility] Order # [id number] Please sign & documented in this encounter Plan of Treatment Upcoming Encounters Date Type Department Care Team (Late st Contact Info) Description 11/28/2025 9:00 AM EST Office Visit Internal Medicine - [place] [address] [place] [phone] Elvia Astudillo PA [address] [place] [address] 12/09/2025 9:40 AM EST Office Visit Gastroenterology - [address] [place] [phone] Aleisha Hutchins MD [address] [place] [address] 03/10/2026 9:30 AM EDT Office Visit Internal Medicine [facility] [address] [place] [phone] Elvia Astudillo PA [address] [facility] [place] [place] [address] documented as of this encounter Visit Diagnoses Not on filedocumented in this encounter Care Teams Surgical Scheduler Relationship Specialty Start Date End Date Elvia Astudillo PA [address] [facility] [address] [place] [address] PCP - General Internal Medicine 06/26/20 documented as of this encounter
--- OUTSIDE RECORDS SUMMARY | 2025-10-13 14:20 | XMS_ITS | Encounter Summary ---
Author Organization [facility] Address [address] [place] [address] Care Team Providers Care Repairer Handtools Name Role Phone Elvia Astudillo Primary Care Provider + Reason for Visit * Reason Onset Date Comments Request For Order(s) 10/10/2025 [facility] Order # [id number] Encounter Details Date Type Department Care Team (Late st Contact Info) Description 10/10/2025 Telephone Internal Medicine - [place] [address] [facility] [address] [facility] [address] [place] [address] Carine Gomez MA Social History [...] Progress Notes * Carine Gomez MA - 10/12/2025 10:25 AM EST Scanned into chart and faxed to [facility] [phone] * Carine Gomez MA - 10/10/2025 9:45 AM EST [facility] Order # [id number] Please sign & documented in this encounter Plan of Treatment Upcoming Encounters Date Type Department Care Team (Late st Contact Info) Description 11/28/2025 9:00 AM EST Office Visit Internal Medicine - [place] [address] [place] [phone] Elvia Astudillo PA [address] [place] [address] 12/09/2025 9:40 AM EST Office Visit Gastroenterology - [address] [place] [phone] Aleisha Hutchins MD [address] [place] [address] 03/10/2026 9:30 AM EDT Office Visit Internal Medicine [facility] [address] [place] [phone] Elvia Astudillo PA [address] [facility] [place] [address] documented as of this encounter Visit Diagnoses Not on filedocumented in this encounter Care Teams Repairer Handtools Relationship Specialty Start Date End Date Elvia Astudillo PA [address] [facility] [address] [place] [address] PCP - General Internal Medicine 06/26/20 documented as of this encounter
[2025-10-13 18:05] LABS: Osmolality, Serum 275 mosm/kg (281-305)
[2025-10-13 18:23] LABS: Total Protein Urine Random 44 mg/dL (<12)
[2025-10-13 18:30] LABS: Appearance Urine Clear; Glucose Urine UA Negative (Negative); PH 6.5 (5.0-9.0); Specific Gravity - Urine 1.010 (1.005-1.025); UMIC TRIGGER UA YES
[2025-10-17 22:43] LABS: Prot Elec - Albumin 4.0 g/dL (3.8-4.8); Prot Elec - Alpha1 0.3 g/dL (0.2-0.3); Prot Elec - Alpha2 0.7 g/dL (0.5-0.9); Prot Elec - Beta 1 0.4 g/dL (0.4-0.6); Prot Elec - Beta 2 0.3 g/dL (0.2-0.5); Prot Elec - Gamma 0.4 g/dL (0.8-1.7); Prot Elec - Total Protein 6.0 g/dL (6.1-8.1)
== END 2025-10-13 11:15 | disposition home or self-care (01) ==
LOC: HO.HKASLDS 11:14
PROVIDERS: PCP Internal Medicine; Visit Provider Internal Medicine Hypertension Specialist
DX: I12.9 Hypertensive chronic kidney disease with stage 1 through stage 4 chronic kidney disease, or unspecified chronic kidney disease (principal); N18.30 Chronic kidney disease, stage 3 unspecified; E87.1 Hypo-osmolality and hyponatremia
CPT/HCPCS: 36415; 81001; 82570; 83930; 83935; 84133; 84156; 84165; 84300

== ENCOUNTER 2025-10-19 09:36 | Outpatient (REF) | payer MEDICARE, SELFPAY ==
[2025-10-19 15:07] LABS: Anion Gap 13 (12-20); Blood Urea Nitrogen 15 mg/dL (9-16); Calcium 9.7 mg/dL (8.4-10.2); Carbon Dioxide 28 mmol/L (22-29); Chloride 91 mmol/L (96-108); Estimated Glomerular Filt Rate > 60; Potassium 4.8 mmol/L (3.3-5.1); Sodium 127 mmol/L (135-145)
--- OUTSIDE RECORDS SUMMARY | 2025-10-19 19:07 | XMS_ITS | Clinical Summary ---
Author Organization 175 [facility] Address 175 [place] [address] Phone Care Team Providers Care Loan Approver Name Role Phone Elvia Astudillo Primary Care [...] by mouth 2 (two) times a day. 4 Active mycophenolate (CELLCEPT) 500 mg tablet Take 3 tablets (1,500 mg total) by mouth 2 (two) times a day. Active valACYclovir (VALTREX) 1 gram tablet Take 1 tablet (1,000 mg total) by mouth 1 (one) time each day. 3 Active timolol (TIMOPTIC) 0.5 % ophthalmic solution 1 drop. Active polyethylene glycol (PEG) 17 gram/dose oral powder Take 17 g by mouth. 4 Active cycloSPORINE (RESTASIS) 0.05 % ophthalmic emulsion 1 drop 2 (two) times a day. Active balsalazide (COLAZAL) 750 mg capsule Take 1 capsule (750 mg total) by mouth 3 (three) times a day. 270 capsule 1 5 Active famotidine (PEPCID) 40 mg tablet Take 1 tablet (40 mg total) by mouth 1 (one) time each day. 180 tablet 3 5 Active metFORMIN XR (GLUCOPHAGE-XR) 500 mg 24 hr tabletIndications :Type 2 diabetes mellitus with diabetic microalbuminuria, without long-term current use of insulin ([facility] V24, [facility] V28) Take 2 tablets (1,000 mg total) by mouth 2 (two) times a day with meals. Do not crush, chew, or split. 360 tablet 1 5 Active NIFEdipine XL (PROCARDIA XL) 30 mg 24 hr tabletIndications :Primary hypertension Take 1 tablet (30 mg total) by mouth 1 (one) time each day before breakfast. 90 tablet 3 5 Active labetaloL (NORMODYNE) 100 mg tablet Take 1 tablet (100 mg total) by mouth 2 (two) times a day. 180 each 1 5 03/14/20 26 Active melatonin 3 mg capsule Take 3 mg by mouth at bedtime. 90 capsule 3 5 Active valsartan (DIOVAN) 80 mg tablet Take 1 tablet (80 mg total) by mouth 1 (one) time each day. 90 each 1 5 Active acetaminophen-cod eine (TYLENOL #3) 300-30 mg per tabletIndications :Rheumatoid arthritis, involving unspecified site, unspecified whether rheumatoid factor present ([facility] V24, [facility] V28) Take 1 tablet by mouth at bedtime as needed for severe pain. Max Daily Amount: 1 tablet 7 tablet 5 Active gabapentin (NEURONTIN) 600 mg tablet Take 1 tablet (600 mg total) by mouth 4 (four) times a day. 360 tablet 1 5 Active gabapentin (NEURONTIN) 600 mg tablet Take 1 tablet (600 mg total) by mouth 3 (three) times a day. 270 tablet 1 5 09/27/20 25 Discontinu ed(Reorder ) labetaloL (NORMODYNE) 100 mg tablet Take 1 tablet (100 mg total) by mouth 2 (two) times a day. 60 each 1 5 09/22/20 25 Discontinu ed(Duplica te order) Active Problems Problem Noted Date Diagnosed Date Anxiety Overview (10/15/2024): DX:Anxiety Chronic sinusitis Overview (10/15/2024): DX:Chronic sinusitis Crohn's disease ([facility] V24, [facility] V28) Overview (10/15/2024): DX:Crohn's disease ([facility]) DM type 2 (diabetes mellitus , type 2) ([facility] V24, [facility] V28) Overview (10/15/2024): DX:DM type 2 (diabetes mellitus, type 2) ([facility]) GERD (gastroesophageal reflux disease) Overview [...] disease Overview (10/15/2024): DX:Raynaud's disease Rheumatoid arthritis ([facility] V24, [facility] V28) Overview (10/15/2024): DX:Rheumatoid arthritis (HCC) 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 ([facility] V24, [facility] V28) Overview (10/15/2024): DX:Wegeners granulomatosis Encounters Date Type Department Care Team Description 10/14/2025 Telephone Internal Medicine [facility] [address] [address] Elvia Astudillo PA 10/10/2025 Telephone Internal Medicine [facility] [address] [address] Colon, JIA Hawk 10/04/2025 Telephone Internal Medicine [facility] [address] [address] Colon, JIA Hawk 09/30/2025 Telephone Internal Medicine [address] [address] Colon, JIA Hawk 09/27/2025 Telephone Internal Medicine [facility] [address] [address] Colon, JIA Hawk 09/27/2025 Telephone Internal Medicine [facility] [address] [address] Colon, JIA Hawk 09/27/2025 Telephone Internal Medicine [facility] [address] [address] Colon, JIA Hawk 09/27/2025 Telephone Internal Medicine [facility] [address] [address] Colon, JIA Hawk 09/27/2025 Telephone Internal Medicine [facility] [address] [address] Carine GomezJIA 09/27/2025 Telephone Internal Medicine [address] [address] Carine GomezJIA 09/22/2025 10:30 AM EDT Office Visit Internal [address] [address] Elvia Astudillo PA Primary hypertension (Primary Dx); Rheumatoid arthritis, involving unspecified site, unspecified whether rheumatoid factor present (CMS/HCC V24, CMS/HCC V28) 09/19/2025 Telephone Internal Medicine [address] [address] Elvia Astudillo PA 09/16/2025 Telephone Internal [address] [address] Elvia Astudillo PA 09/14/2025 10:30 AM EDT Office Visit Internal [address] [address] Ben Wheatley MD Hospital discharge follow-up (Primary Dx); Cerebral brain hemorrhage (CMS/HCC V24, CMS/[facility] V28); Primary hypertension 09/14/2025 Telephone Internal [address] [address] Elvia Astudillo PA 09/13/2025 Telephone Internal Medicine [address] [address] Elvia Astudillo PA 09/04/2025 Results Follow-Up [address] [address] Elvia Astudillo PA 09/02/2025 9:30 AM EDT Office Visit [address] [address] Elvia Astudillo PA Type 2 diabetes mellitus with diabetic microalbuminuria, without long-term current use of insulin ([facility] V24, [facility] V28) (Primary Dx); Primary hypertension; Pure hypercholesterolemia ; Rheumatoid arthritis, involving unspecified site, unspecified whether rheumatoid factor present ([facility] V24, [facility] V28) 09/02/2025 Telephone Internal Medicine - [place] [address] [place] [address] Elvia Astudillo PA 07/20/2025 Telephone Gastroenterology - [address] [place] [address] [place] [address] Aleisha Hutchins MD from Last [...] declines medication Insomnia 07/15/2017 DX:Insomnia Rheumatoid arthritis (CMS/ C V24, [facility] V28) 07/03/2018 DX:Rheumatoid arthritis (HCC ) Wegeners granulomatosis 07/03/2018 DX:Wegen ers granulomatosis Crohn's disease ([facility] V24 , [facility] V28) 07/03/2018 DX:Crohn's disease (HCC) GERD (gastroesophageal reflux disease) 11/07/2017 DX:GERD (gastroesophageal reflux disease) Raynaud's disease DX:Raynaud's d isease 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 DM type 2 (diabetes mellitus , type 2) ([facility] V24, [facility] V28) 07/03/2018 DX:DM type 2 (diabetes papa itus, type 2) ([facility]) HTN (hypertension) DX:HTN (hyper tension) [...] AM EST Office Visit Internal Medicine - [place] [address] [place] [address] Elvia Astudillo PA [address] [facility] [place] [address] 12/09/2025 9:40 AM EST Office Visit Gastroenterology - [address] [place] [address] [facility] [address] [place] [phone] Aleisha Hutchins MD 299 [facility] 419 [place] [address] 03/10/2026 9:30 AM EDT Office Visit Internal Medicine - [place] 175 [facility] 200 [place] [phone] Elvia Astudillo PA [address] [place] [address] Health Maintenance Due Date Last Done Comments [...] CLINICAL LAB 09/30/2025 EXTERNAL CLINICAL LAB 09/30/2025 EXTERNAL CLINICAL LAB 09/30/2025 COMPREHENSIVE METABOLIC PANEL Routine 09/02/2025 10:07 AM EDT Type 2 diabetes mellitus with diabetic microalbuminuria, without long-term current use of insulin ([facility] V24, [facility] V28) Primary hypertension HEMOGLOBIN A1C Routine 09/02/2025 10:07 AM EDT Type 2 diabetes mellitus with diabetic microalbuminuria, without long-term current use of insulin ([facility] V24, [facility] V28) HM URINE ALBUMIN CREATININE RATIO Routine 06/08/2024 LIPID PANEL Routine 07/20/2020 EXTERNAL COLONOSCOPY REPORT Routine 04/05/2003 8:55 AM EDT from Last 3 Months or Most Recently Relevant to Health Maintenance Results * External clinical lab (09/30/2025) Only the most recent of3 resultswithin the time period is included. Provider [facility] LAB BLOOD ORDERABLES Fin al Result * Hemoglobin A1c (09/02/2025 10:07 AM EDT) Hemoglobin A1C 6.1 <6.5 % LAB CHEMISTRY METHOD 09/02/2025 8:24 PM EDT [facility] Mean Bld Glu Estim. 128 mg/dL LAB CHEMISTRY METHOD 09/02/2025 8:24 PM EDT [facility] Blood Venous blood specimen / Unknown Venipuncture / Unknown 09/02/2025 10:07 AM EDT 09/02/2025 10:07 AM EDT Elvia ANDERSON LAB BLOOD ORDERABLES Fin al Result [facility] [address] [place] [address], * (ABNORMAL) Comprehensive metabolic panel (09/02/2025 10:07 AM EDT) Pathologist [facility] Sodium 133 133 - 145 mmol/L LAB CHEMISTRY METHOD 09/02/2025 4:22 PM [facility] Potassium 4.6 3.5 - 5.5 mmol/L LAB CHEMISTRY METHOD 09/02/2025 4:22 PM [facility] Chloride 93(L) 96 - 110 mmol/L LAB CHEMISTRY METHOD 09/02/2025 4:22 PM [facility] CO2 31 21 - 32 mmol/L LAB CHEMISTRY METHOD 09/02/2025 4:22 PM [facility] Anion Gap 9 3 - 11 LAB CHEMISTRY METHOD 09/02/2025 4:22 PM [facility] Glucose 125(H) 70 - 100 mg/dL LAB CHEMISTRY METHOD 09/02/2025 4:22 PM [facility] BUN 10 5 - 25 mg/dL LAB CHEMISTRY METHOD 09/02/2025 4:22 PM [facility] Creatinine 0.55 0.50 - 1.10 mg/dL LAB CHEMISTRY METHOD 09/02/2025 4:22 PM [facility] eGFR 99 >=60 mL/min/1. 73m2 LAB CHEMISTRY METHOD 09/02/2025 4:22 PM [facility] Comment:Calculation based on the Chronic Kidney Disease Epidemiology Collaboration (CKD-EPI) equation refit without adjustment for race. BUN/Creatinine Ratio 18.2 LAB CHEMISTRY METHOD 09/02/2025 4:22 PM [facility] Calcium 9.8 8.5 - 10.5 mg/dL LAB CHEMISTRY METHOD 09/02/2025 4:22 PM [facility] AST (SGOT) 14 10 - 42 unit/L LAB CHEMISTRY METHOD 09/02/2025 4:22 PM [facility] ALT (SGPT) 22 10 - 60 unit/L LAB CHEMISTRY METHOD 09/02/2025 4:22 PM [facility] Alkaline Phosphatase 42 42 - 121 unit/L LAB CHEMISTRY METHOD 09/02/2025 4:22 PM [facility] Total Protein 6.3 6.0 - 8.0 g/dL LAB CHEMISTRY METHOD 09/02/2025 4:22 PM [facility] Albumin 3.7 3.2 - 5.0 g/dL LAB CHEMISTRY METHOD 09/02/2025 4:22 PM [facility] Total Bilirubin 0.3 0.0 - 1.4 mg/dL LAB CHEMISTRY METHOD 09/02/2025 4:22 PM [facility] Blood Venous blood specimen / Unknown Venipuncture / Unknown 09/02/2025 10:07 AM EDT 09/02/2025 10:07 AM EDT Elvia ANDERSON LAB BLOOD ORDERABLES Fin al Result [facility] [address] [place] [address], * HM Urine Albumin Creatinine Ratio (06/08/2024) [...] Recently Relevant to Health Maintenance Insurance MEDICARE [facility] Care Teams Loan Approver Relationship Specialty Start Date End Date Elvia Astudillo PA [address] [address] PCP - General Internal Medicine 06/26/20
--- OUTSIDE RECORDS SUMMARY | 2025-10-19 19:08 | XMS_ITS | Clinical Summary ---
Author Organization [facility] Address [address] [place] [address] [place], [place] [id number] Phone Care Team Providers Care Associate Professor Of Sociology Name Role Phone Ismael Hutchison MD Primary Care Provider [phone] Social History Tobacco Use Types Packs/Day Years Used Date Smoking Tobacco: Never Assessed Comments Unknown Sex and Gender Information Value Date Recorded Sex Assigned at Not on file Legal Sex Female 5:03 PM EST Gender Identity Not on file Sexual Orientation Not on file Plan of Treatment Not on file Medical Devices Not on file [facility] POS Care Teams Associate Professor Of Sociology Relationship Specialty Start Date End Date Ismael Hutchison MD PCP - General 08/08/14 Additional Source Comments The information contained in this document represents components of the legal health record. It is not the complete legal health record.[facility]
--- OUTSIDE RECORDS SUMMARY | 2025-10-19 19:08 | XMS_ITS | Encounter Summary ---
Author Organization [facility] [address] Address [address] [place] [address] Care Team Providers Care Ostomy Nurse Name Role Phone Elvia Astudillo Primary Care Provider + Encounter Details Date Type Department Care Team ([facility] st Contact Info) Description 09/16/2025 Telephone Internal Medicine - [place] [address] [facility] [address] [place] [address] Elvia Astudillo PA [address] [place] [address] Social History Tobacco Use Types Packs/Day Years [...] office and informed him of new appt -[phone] [facility] - [id number] at 2:OOPM FYI documented in this encounter Plan of Treatment Upcoming Encounters Date Type Department Care Team (Late st Contact Info) Description 11/28/2025 9:00 AM EST Office Visit Internal Medicine [facility] 175 [facility] [address] [place] [phone] Elvia Astudillo PA 230 [place] [address] 12/09/2025 9:40 AM EST Office Visit Gastroenterology - [address] [place] 299 [facility] [address] [place] [address] Aleisha Hutchins MD [address] [address] 03/10/2026 9:30 AM EDT Office Visit Internal Medicine [facility] 175 [facility] 200 [place] [address] Elvia Astudillo PA [address] [place] [address] documented as of this encounter Visit Diagnoses Not on filedocumented in this encounter Care Teams Ostomy Nurse Relationship Specialty Start Date End Date Elvia Astudillo PA [address] [address] PCP - General Internal Medicine 06/26/20 documented as of this encounter
--- OUTSIDE RECORDS SUMMARY | 2025-10-19 19:08 | XMS_ITS | Encounter Summary ---
Author Organization [facility] Address [address] [place] [address] Care Team Providers Care Information Technology Specialist Name Role Phone Elvia Astudillo Primary Care Provider + Encounter Details Date Type Department Care Team (Late Contact Info) Description 09/04/2025 Results Follow-Up Internal Medicine [facility] 175 [facility] 200 [place] [address] Elvia Astudillo PA [address] [place] [address] Social History Tobacco Use Types Packs/Day Years [...] 9:00 AM EST Office Visit Internal Medicine [facility] 175 [facility] 200 [place] [address] Elvia Astudillo PA [address] [place] [address] 12/09/2025 9:40 AM EST Office Visit Gastroenterology - 299 [facility] 299 [facility] [address] [place] [phone] Aleisha Hutchins MD 299 [facility] [address] [place] [address] 03/10/2026 9:30 AM EDT Office Visit Internal Medicine - [place] 175 [facility] [address] [place] [phone] Elvia Astudillo PA 230 [place] [address] documented as of this encounter Visit Diagnoses Not on filedocumented in this encounter Care Teams Information Technology Specialist Relationship Specialty Start Date End Date Elvia Astudillo PA 175 [facility] 200 [place] [address] PCP - General Internal Medicine 06/26/20 documented as of this encounter
--- OUTSIDE RECORDS SUMMARY | 2025-10-19 19:08 | XMS_ITS | Encounter Summary ---
Author Organization [facility] Address [address] [place] [address] Care Team Providers Care Condemnation Engineer Name Role Phone Elvia Astudillo Primary Care Provider + Encounter Details Date Type Department Care Team ([facility] st Contact Info) Description 10/14/2025 Telephone Internal Medicine - [place] 175 [facility] [address] [place] [address] Elvia Astudillo PA [address] [place] [address] Social History Tobacco Use Types Packs/Day Years [...] encounter Progress Notes * MONICA Lopez - 10/16/2025 5:46 PM EST Noted. Thank you. * Bree Dean - 10/14/2025 10:26 AM EST FYI [facility] Go[facility] met documented in this encounter Plan of Treatment Upcoming Encounters Date Type Department Care Team (Late st Contact Info) Description 11/28/2025 9:00 AM EST Office Visit Internal Medicine [facility] 175 [facility] 200 [place] [phone] Elvia Astudillo PA 230 [place] [address] 12/09/2025 9:40 AM EST Office Visit Gastroenterology - [address] [place] [address] [facility] [address] [place] [address] Aleisha Hutchins MD 299 [facility] [address] [place] [address] 03/10/2026 9:30 AM EDT Office Visit Internal [facility] 175 [facility] 200 [place] [phone] Elvia Astudillo PA 230 [place] [address] documented as of this encounter Visit Diagnoses Not on filedocumented in this encounter Care Teams Condemnation Engineer Relationship Specialty Start Date End Date Elvia Astudillo PA [address] [address] PCP - General Internal Medicine 06/26/20 documented as of this encounter
== END 2025-10-19 09:37 | disposition home or self-care (01) ==
LOC: HO.HKASLDS 09:36
PROVIDERS: PCP Internal Medicine; Visit Provider Internal Medicine Hypertension Specialist
DX: I10 Essential (primary) hypertension (principal); E87.1 Hypo-osmolality and hyponatremia; R60.0 Localized edema; E11.9 Type 2 diabetes mellitus without complications; M31.30 Wegener's granulomatosis without renal involvement; G62.9 Polyneuropathy, unspecified; I62.9 Nontraumatic intracranial hemorrhage, unspecified; R80.9 Proteinuria, unspecified; Z79.84 Long term (current) use of oral hypoglycemic drugs; Z79.899 Other long term (current) drug therapy
CPT/HCPCS: 36415; 80048; 99212

== ENCOUNTER 2025-10-19 09:36 | Outpatient (AMB) | payer MEDICARE, SELFPAY ==
[2025-10-19 09:41] VITALS: BP 180/78; PULSE 58; O2SAT 98; BMI 15.7
--- NOTE | 2025-10-19 09:41 | HO.NEPHOV_ITS ---
Vital Signs 10/19/25 09:41 Height 5 ft 2 in Weight 86 lb BMI 15.7 BP 180/78 H Blood Pressure Location Lt brachial Position Sitting Pulse 58 Pulse Source Pulse Oximeter Pulse Oximetry (%) 98 Oxygen Delivery Method Room Air Intake Visit Reasons: 2 weeks follow up E Commerce Developer Required: No Accompanied by: Self / Same As Patient Allergies adalimumab Allergy (Unknown, Verified 10/19/25 09:43) Rash alendronate sodium Allergy (Unknown, Verified 10/19/25 09:43) Unknown azathioprine Allergy (Unknown, Verified 10/19/25 09:43) Unknown cefuroxime Allergy (Unknown, Verified 10/19/25 09:43) Nausea and Vomiting clindamycin Allergy (Unknown, Verified 10/19/25 09:43) Gastrointestinal Upset etanercept Allergy (Unknown, Verified 10/19/25 09:43) Unknown golimumab Allergy (Unknown, Verified 10/19/25 09:43) Unknown ibandronate sodium Allergy (Unknown, Verified 10/19/25 09:43) Unknown levofloxacin Allergy (Unknown, Verified 10/19/25 09:43) GI Intolerance lisinopril Allergy (Unknown, Verified 10/19/25 09:43) Cough methotrexate Allergy (Unknown, Verified 10/19/25 09:43) Unknown risedronate sodium Allergy (Unknown, Verified 10/19/25 09:43) Unknown sulfamethoxazole (From Sulfamethoxazole-Trimethoprim) Allergy (Unknown, Verified 10/19/25 09:43) Hives trimethoprim (From Sulfamethoxazole-Trimethoprim) Allergy (Unknown, Verified 10/19/25 09:43) Hives covid 19 vaccine Bivalent, Moderna Allergy (Unknown, Uncoded 09/26/25 15:19) Hives Medication List - Last Reconciled 10/19/25 by Bradley Rosenberg MD balsalazide 750 mg PO TID cyclosporine 0.05% (Restasis) 1 drp ophthalmic (eye) BID doxycycline monohydrate 100 mg PO BID famotidine 40 mg PO DAILY ferrous sulfate 134 mg PO DAILY gabapentin 600 mg PO TID labetalol 100 mg PO Q12H metformin ER 1,000 mg PO BID mycophenolate mofetil 1,500 mg PO BID prednisone 4 mg PO DAILY timolol maleate 0.5% 1 drp ophthalmic (eye) BID valacyclovir 1,000 mg PO DAILY valsartan 80 mg PO BID HPI Comments Details: The patient is a 70-year-old female presenting with hypertension management and associated complications. The patient has a long-standing history of essential hypertension, first noted during her teenage years. Despite treatment with labetalol, nifedipine, and valsartan, her blood pressure remains poorly controlled, often reaching 180 mmHg in the mornings before medication. She experiences significant peripheral edema, particularly in the feet and legs, which worsens with nifedipine use. The patient also has a history of diabetes mellitus, managed with metformin, and reports an A1c of 6.5%. Additionally, she has been diagnosed with Siddharth's Granulomatosis, confirmed through blood work and biopsy, and is currently managed with mycophenolate. Neuropathy, affecting her legs and feet, is managed with gabapentin, although she reports significant pain at night. She has also experienced a brain hemorrhage, with a recent CT confirming stability and no further complications. 10/05/25 The patient is a 70-year-old female presenting with hypertension management. She reports a history of elevated blood pressure readings, with a recent measurement of 188/80 mmHg. The patient is currently on a regimen of labetalol, nifedipine, and valsartan, but her blood pressure remains elevated. The patient experiences significant peripheral edema, particularly in the legs and feet, which worsens by the end of the day. This swelling has been attributed to nifedipine, and she reports difficulty wearing shoes due to the edema. The patient has been advised to reduce her water intake due to hyponatremia, which may be exacerbated by excessive fluid consumption. She drinks approximately 48 ounces of water daily, along with tea and decaffeinated coffee. 10/19/25 The patient is a 70-year-old female presenting for follow-up for management of hypertension and hyponatremia. Her blood pressure remains elevated at 180/x mmHg, showing no improvement despite a recent increase in her valsartan dosage to 80 mg twice daily. Her current antihypertensive medications include valsartan and labetalol 100 mg twice daily. The patient reports persistent bilateral leg swelling, which has not improved since discontinuing nifedipine two weeks ago. The swelling worsens throughout the day, She experiences occasional lightheadedness and sometimes feels the urge to urinate but is unable to. Her last sodium level was low at 127 mEq/L. Her fluid intake consists of water, one to two cups of decaffeinated tea, and about three cups of coffee daily. The patient has a history of granulomatosis with polyangiitis, Recent lab work shows persistent proteinuria but no hematuria, an improvement from previous tests. 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 Thin built Neck supple no JVD. Lungs entry equal no rales. Heart S1-S2 heard no gallop or rub. Abdomen soft nontender. Neuro alert awake oriented. No asterixis. Extremities 1 + ankle edema. Results Reviewed Nephrology Results: Hgb, (12.0-16.0) 11.2 g/dl L 09/30/25 WBC, (4.8-10.8) 7.5 X10*3/uL 09/30/25 Plt Count, (160-400) 305 X10*3/uL 09/30/25 Sodium, (135-145) 127 mmol/L L 09/30/25 Potassium, (3.3-5.1) 4.6 mmol/L 09/30/25 Chloride, (96-108) 91 mmol/L L 09/30/25 Carbon Dioxide, (22-29) 26 mmol/L 09/30/25 BUN, (9-16) 13 mg/dL 09/30/25 Creatinine, (0.5-1.4) 0.53 mg/dL 09/30/25 Calcium, (8.4-10.2) 9.3 mg/dL 09/30/25 Urine Protein, (Neg-Trace) 100 (2+) mg/dL H 10/13/25 Urine Creatinine 16.86 mg/dL 10/13/25 Assessment & Plan Assessment & Plan (1) HTN (hypertension): Code(s): I10 - Essential (primary) hypertension Category: Medical Plan 1. Essential Hypertension - Await 24-hour blood pressure monitoring to assess fluctuations Waiting for BP cuff - INCrease Valsartan to 160 mg BID 2. Peripheral Edema Most likley due to underlying DM vs others - HAs nephrotic range proteirnuia This could be a factor REcheck urine Pro: cr SPEP- no MCGP Maximize ARB . 3. Diabetes Mellitus - Continue management with metformin and monitor A1c levels. 4. Siddharth's Granulomatosis - Continue current management with mycophenolate. ANCA/ PR3/MPO + 5. Neuropathy - Continue gabapentin for neuropathic pain management. - Consider referral to traffic line painter for further evaluation. 6. h/o Brain Hemorrhage - Follow-up with neurology and repeat MRI to monitor for any changes. 7. Hyponatremia chronic From decreased free water clearance ; Non osmotic ADH release Limit PO water intake Repeat Na levels today; Goal > 130 Orders: Orders Total Protein Urine Random 6 Weeks E87.1 - Hypo-osmolality and hyponatremia, I10 - Essential (primary) hypertension, R80.9 - Proteinuria, unspecified Basic Metabolic Panel Today E87.1 - Hypo-osmolality and hyponatremia Creatinine Urine 6 Weeks E87.1 - Hypo-osmolality and hyponatremia, I10 - Essent ial (primary) hypertension, R80.9 - Proteinuria, unspecified UA and rflx microscopic 6 Weeks E87.1 - Hypo-osmolality and hyponatremia, I10 - Essential (primary) hypertension, R80.9 - Proteinuria, unspecified Medications: Changed From valsartan 80 mg PO BID 60 tabs 1RF To valsartan 160 mg (2 x 80 mg) PO BID 60 tabs 1RF Coding Level of Care Code Est Pt Level 4 (24085) Diagnoses HTN (hypertension) I10
--- OUTSIDE RECORDS SUMMARY | 2025-10-19 17:45 | XMS_ITS | Data Portability ---
Author Organization [place] [facility], Allergy Address [address] [place] [address] Care Team Providers Care Proctologist Name Role Phone RICHARD VAUGHN Primary Care [...] Details Recorded Time Abnormal auditory perceptio n [id number] Active 2013 Abnormal auditory perceptio n, unspecifi ed; Note: Date Diagnosed : 4 11:29 AM (388.40) Not Available [facility] 4 02:51:32 Unilatera l sensorine ural hearing loss with unrestric efe hearing on the contralat eral side Active 2013 Sensorine ural HL, unilatera l; Note: Date Diagnosed : 4 12:08 PM (389.15) Not Available [facility] 4 02:51:30 Patulous left Eustachia n tube 56693993145 35129 Active 2016 Patulous Eustachia n tube, left ear; Note: Date Diagnosed : 03/05/2017 2:51 PM (H69.02) Not Available [facility] 4 02:51:28 Sensorine ural hearing loss of bilateral ears 866688889 Active 2016 Sensorine ural hearing loss, bilateral ; Note: Date Diagnosed : 03/05/2017 2:06 PM (H90.3) Not Available Counts include 234 beds at the [facility] 4 02:51:29 Bilateral disorder of Eustachia n tubes 29409260974 05824 Active 2016 Other specified disorders of Eustachia n tube, bilateral ; Note: Date Diagnosed : 03/05/2017 2:51 PM (H69.83) Not Available [facility] 4 02:51:30 Chronic sinusitis 11572523 Active 2020 Other chronic sinusitis ; Note: Date Diagnosed : 09/07/2021 9:38 AM (J32.8) Not Available Counts include 234 beds at the [facility] 4 02:51:27 Granuloma tosis with polyangii tis 763954244 Active 2020 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; Note: Date Diagnosed : 4 11:29 AM (446.4) ; Start Date : 4 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; Note: Date Diagnosed : 09/07/2021 9:38 AM (M31.30) Not Available [facility] 4 02:51:32 Mass of neck 298967523 Active 2020 Localized swelling, mass and lump, neck; Note: Date Diagnosed : 09/07/2021 9:38 AM (R22.1) Not Available Counts include 234 beds at the [facility] 4 02:51:28 Neck swelling 543205416 Active 2020 Localized swelling, mass and lump, neck; Note: Date Diagnosed : 09/07/2021 9:38 AM (R22.1) Not Available Counts include 234 beds at the [facility] 4 02:51:28 Acute sinusitis 26667982 Active 2021 Acute sinusitis , unspecifi ed; Note: Date Diagnosed : 04/04/2022 12:37 PM (J01.90) Not Available Counts include 234 beds at the [facility] 4 02:51:29 Chronic disease of tonsils AND/OR adenoids 89850999 Active 2022 Calculus, tonsil; Note: Date Diagnosed : 12/30/2022 2:20 PM (J35.8) Not Available Counts include 234 beds at the [facility] 4 02:51:30 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; Note: Date Diagnosed : 02/19/2023 11:16 AM (D49.0) Not Available Counts include 234 beds at the [facility] 4 02:51:32 Chronic tonsillit is 45854869 Active 2022 Chronic tonsillit is; Note: Date Diagnosed : 02/19/2023 11:16 AM (J35.01) Not Available Counts include 234 beds at the [facility] 4 02:51:31 Chronic rhinitis 38945956 Active 2023 ANTON PERSAUD MD [address] [place], [place] [address], [address] , [facility] - [facility] 4 10:49:44 Tonsillar retention cyst 848628882 Active 2023 ANTON PERSAUD MD [address] [place], [place] [address], [address] , [facility] - [facility] 4 10:49:52 Problem Notes None recorded. Procedures Surgical History Date Name Laterality Status Provider Name and Address Organization Details Recorded Time JMSNasal/Sinus Endoscopy completed ANTON VILLALOBOS MD [address] [place] [address], [place], [address], [facility] - [facility] 09/10/2024 10:49:26 Imaging Results None recorded. Procedure Notes None recorded. Medical Equipment None Reported. Allergies Allergen ID Allergen Name Allergen Category Reaction Reaction Severity Criticality Documentation Date Start Date Code Code System Note Provider Name and Address Organization Details Recorded Time 959732 cefuroxim e axetil medicatio n nausea Not available Not available 04/13/2024 72521 RxNorm React ion: other react ion, upset stoma ch; Not Available Counts include 234 beds at the [facility] 4 01:11:48 924663 Bactrim medicatio n hives Not available Not available 04/13/2024 25522 9 RxNorm React ion: skin rashe s, hives ;; Not Available Counts include 234 beds at the [facility] 4 01:11:49 161303 Enbrel medicatio n other Not available Not available 04/13/2024 62686 1 RxNorm React ion: other react ion, Unkno wn; Not Available Counts include 234 beds at the [facility] 4 01:11:53 Medications Name Sig Start Date Stop Date Status Note LastModified by Organization Details LastModified Time nifedipin e ER 30 mg tablet,ex tended release 24 hr active Not Available Not Available Not Available dicloxaci llin 500 mg capsule active Medicati on ID: 950853 B rand Name: dicloxac illin Se nd [...] mg tablet 02/19 completed Medicati on ID: 49793 Du ration Value: 30 Brand Name: predniso ne Send Method: E-Prescr ibed Sub s Allowed: subs OK Medic ationGen ericName : predniso ne Not Available Not Available Not Available ciproflox acin 500 mg tablet Take 1 tablet twice a day 2021 active Medicati on ID: 798119 D uration Value: 10 Brand Name: ciproflo [...] a day 09/10 completed Medicati on ID: 212430 D uration Value: 7 Prescri bed By Name: PARDEEP Singh nd Name: amoxicil latia Send Method: E-Prescr ibed Sub s Allowed: subs OK Medic ationGen ericName : amoxicil latia Not Available Not Available Not Available prednison e 1 mg tablet active Not Available Not Available Not Available nifedipin e 10 mg capsule 02/19 completed Medicati on ID: 94521 Du ration Value: 90 Brand Name: nifedipi ne Send Method: E-Prescr ibed Sub s Allowed: subs OK Medic ationGen ericName : nifedipi ne Not Available Not Available Not Available doxycycli ne monohydra te 100 mg capsule active Not Available Not Available Not Available hydrocodo ne 7.5 mg-acetam inophen 325 mg tablet 02/19 completed Medicati on ID: 97726 Du ration Value: 5 Brand Name: hydrocod [...] mg tablet 02/19 completed Medicati on ID: 90390 Du ration Value: 30 Brand Name: simvasta tin Send Method: E-Prescr ibed Sub s Allowed: subs OK Medic ationGen ericName : simvasta tin Not Available Not Available Not Available clotrimaz ole-betam ethasone 1 %-0.05 % topical cream active Medicati on ID: 371039 B rand Name: mayariluis enrique zole-bet amethaso ne Send Method: E-Prescr ibed Sub s Allowed: subs OK Medic ationGen ericName : clotrima zole-bet amethaso ne Not Available Not Available Not Available lansopraz ole 30 mg capsule,d elayed release 03/05 completed Medicati on ID: 08372 Du ration Value: 90 Reason: () Brand [...] a day 09/12 completed Medicati on ID: 370129 D uration Value: 10 Prescri bed By [...] 33 gauge 02/19 completed Medicati on ID: 59938 Du ration Value: 90 Brand Name: OneTouch Delica Lancets Send Method: E-Prescr ibed Sub s Allowed: subs OK Medic ationGen ericName : OneTouch Delica Lancets Not Available Not Available Not Available Vitals Date Recorded Body height Body mass index (BMI) Body weight Provider Name and Address Organization Details Last Updated DateTime 09/10/2024 160.02 cm 14.7 kg/m2 64761.17 g Stefan Matos [place] - [facility] 09/10/2024 10:29:29 Social History None recorded. Functional Status None recorded. Mental Status None recorded. Family History Nothing Reported. Medical History No medical history recorded. Gynecological HistoryNo gynecological history recorded. Obstetrics History GPAL:G 0 P 0 0 0 0 Past Encounters Encounter ID Performer Location Encounter Start Date Encounter Closed Date Diagnosis/Indication Diagnosis SNOMED-CT Code Diagnosis ICD10 Code Diagnosis IMO Codes Diagnosis Note [id number] ANTON PERSAUD MD [facility] [address] [address] 09/10/2024 10:21:18 09/10/2024 12:17:37 Granulomatosis with polyangiitis 752243711 M31.30 Chronic rhinitis 8079904 6 J31.0 Tonsillar retention cyst 649298746 J35.8 Health Concerns Section Related Observation LastModified by Organization Detai ls LastModified Time None Recorded Concern Status LastModified by Organization Details LastModified Time None Recorded Advance Directives Directive None Recorded Payers Insurance Date Sequence Insurance Name Policy Number Policy Capps Covered Member ID Capps Member ID Guarantor Name 09/13/2024 2 [facility] (PP[facility] [id number] Ita L Bein [id number] Ita L Bein 09/13/2024 1 MEDICARE B-CO: [employer] Ita L Bein [id number] Ita L Bein Notes Date Note [...] PND and tonsil stones ANTON VILLALOBOS MD [address] [place] [address], [phone], [facility] - [facility] 09/10/2024 10:52:35 OBGyn Episode No OBEpisode recorded.
== END 2025-10-19 10:00 | disposition home or self-care (01) ==
LOC: HO.HKAS 09:37
PROVIDERS: PCP Internal Medicine; Visit Provider Internal Medicine Hypertension Specialist
DX: I10 Essential (primary) hypertension (principal)
CPT/HCPCS: 99214